=== PATIENT | female | born 1960 | race Caucasian/White ===

== ENCOUNTER 2018-12-04 10:45 | Inpatient (IN) ==
[2018-12-04] MEDS ORDERED: cefOXitin 2,000 MG in Water for inj. (sterile) 20 ML 20 ML IVP ONE (11:07)
[2018-12-04] MEDS ORDERED: Ringers Solution, Lactated 1,000 ML IVC SCH (11:15)
[2018-12-04] MEDS ORDERED: Famotidine 20 MG/2 ML VIAL IVP ONE (11:39)
[2018-12-04] MEDS ORDERED: Acetaminophen IV 1,000 MG/100 ML INFUS..BTL IVPB ONE (11:40)
[2018-12-04] MEDS ORDERED: Pregabalin 75 MG CAPSULE PO ONE (11:40)
--- NOTE | 2018-12-04 11:47 | Anesthesia Evaluation PreOp ---
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 History: CVA (08/21/2017 - R-MCA L-hand sensory impairment, Mild LUE weakness when excessively fatigued) Other Medical History: Other (Rectal Ca & Transverse Colon Ca) Anesthesia History: No Prior Anesthetic Complications, Past Anesthesia (C- section x 2, FAYE, Colonscopy) Alcohol Use: rarely Drug use: none Medications and Allergies Aspirin [Lo-Dose Aspirin EC] 81 mg PO DAILY 01/03/18 [History] Atorvastatin [Lipitor] 80 mg PO HS 01/03/18 [History] Famotidine [Heartburn Prevention] 20 mg PO BID 01/03/18 [History] Losartan [Cozaar] 25 mg PO DAILY 01/03/18 [History] Cetirizine HCl [Zyrtec] 10 mg PO DAILY 11/09/18 [History] Allergy/AdvReac Type Severity Reaction Status Date / Time No Known Allergies Allergy Verified 11/28/18 14:41 - Meds/Allergy Pre-op Review Medications Reviewed: Yes Allergies Reviewed: Yes Anesthesia Results - Labs Laboratory Tests 11/09/18 11/09/18 15:15 15:15 WBC 6.0 Hgb 12.7 Hct 39.2 Plt Count 287 Sodium 139 Potassium 3.8 Chloride 105 Carbon Dioxide 27 BUN 15 Creatinine 0.86 Est GFR (Non-Af Amer) > 60 Glucose 113 H Carcinoembryonic Ag 47.6 H - Imaging EKG: image reviewed (77bpm - SINUS RHYTHM NONSPECIFIC T-WAVE ABNORMALITY Electronically Signed On 11-28-2018 21:09:21 EST by Armando Reid) Additional studies: ECHO [[facility]] 08/22/2017 LVEF 55-60% Diastolic dysfunction Anesthesia Exam O2 Sat Height 1.57 m Height 1.57 m Weight 73.482 kg Weight 73.482 kg O2 Sat by Pulse Oximetry 93 Vital Signs Temp Pulse Resp BP Pulse Ox 99.1 F 94 18 129/87 93 12/04/18 11:12 12/04/18 11:12 12/04/18 11:12 12/04/18 11:12 12/04/18 11:12 Height: 5'2" Weight: 162# BMI = 30 NPO (# of Hours): MNOc - HEENT Pupil (Motor): Pupils equal, EOMI Mallampati: II Teeth: Missing Denture Type: Upper: Partial, Lower: Partial Oral Opening: Greater than 3 - CHIEF CREW SCHEDULER LOC: Oriented, Confused CHIEF CREW SCHEDULER Motor: Normal RUE, Normal LUE, Normal RLE, Normal LLE, Normal Face CHIEF CREW SCHEDULER Sensory: Normal: RUE, LUE, RLE, LLE, Face - Cardiac Rhythm: Regular Murmur: None - Pulmonary Breath Sounds: bilateral Clear Respiratory Effort: Symmetrical Anesthesia Assess/Plan ASA Score: 3 Level of consciousness: Cooperative, Oriented, Tranquil Anesthetic Plan: General, Epidural Monitoring Plan: Standard Monitors Recovery Plan: PACU Anes Supervising Prov Stmt: Pt seen/evaluated, R&B Discussed, questions answered and consent obtained. Get Hernandez MD
[2018-12-04] MEDS ORDERED: *HR* Succinylcholine 200 MG/10 ML VIAL IVP ONE (12:15)
[2018-12-04] MEDS ORDERED: *HR* Rocuronium Bromide 50 MG/5 ML VIAL ONE ×2 (12:15→14:50)
[2018-12-04] MEDS ORDERED: Lidocaine -MPF 4% 5 ML AMPUL ONE (12:15)
[2018-12-04] MEDS ORDERED: Lidocaine -MPF 2% 2 ML VIAL ONE (12:15)
[2018-12-04] MEDS ORDERED: *HR* Midazolam HCl 2 MG/2 ML VIAL ONE (12:16)
[2018-12-04] MEDS ORDERED: *HR* Propofol 200 MG/20 ML VIAL IVP ONE (12:16)
[2018-12-04] MEDS ORDERED: *HR* FentaNYL (PF) 100 MCG/2 ML VIAL ONE ×2 (12:16→13:07)
[2018-12-04] MEDS ORDERED: 0.9 % Sodium Chloride 500 ML IVC PRN (12:31)
[2018-12-04] MEDS ORDERED: *HR* OxyCODONE/APAP 5/325 TABLET PO PRN (12:31)
[2018-12-04] MEDS ORDERED: *HR* HYDROmorphone (PF) 1 MG/ML SYRINGE IVP PRN (12:31)
[2018-12-04] MEDS ORDERED: Naloxone 0.4 MG/ML INJ IVP PRN ×2 (12:31→18:51)
[2018-12-04] MEDS ORDERED: *HR* Morphine 2 MG/ML SYRINGE IVP PRN (12:31)
[2018-12-04] MEDS ORDERED: Morphine Sulfate/PF 10mg/10mL 10 MG, Bupivacaine-MPF 0.25% 125 ML in 0.9 % Sodium Chlor... EP SCH (12:45)
--- NOTE | 2018-12-04 12:48 | History & Physical Report ---
Date of Encounter: 12/04/18 Time of Encounter: 12:48 24 Hour HP Update - Instructions Instructions: If the History and Physical is less than 30 days old and was completed prior to A.M. admission and or procedure and has NOT been updated on calendar day of procedure please complete this update prior to performing procedure. - Update Patient reports changes in Medical Condition: No Changes in examination, assessment, or condition: No Changes in Medication: No Surgery Remains Indicated: Yes Consent for Planned Operative Procedure(s) Verified: Yes - Pre-Operative Checklist Prophylactic Antibiotic Ordered: Yes Home Medications Include Beta Ines: No Is VTE Prophylaxis Indicated?: Yes
[2018-12-04] MEDS ORDERED: Lidocaine/EPI 1:200k 1% PF 10 ML VIAL ONE (13:02)
[2018-12-04] MEDS ORDERED: Lidocaine -MPF 1% 5 ML AMPUL ONE (13:08)
[2018-12-04] MEDS ORDERED: Bupivacaine-MPF 0.25% 10 ML VIAL ONE (13:08)
[2018-12-04] MEDS ORDERED: Morphine Sulfate/PF 5mg/10mL Vial ONE (13:09)
[2018-12-04] MEDS ORDERED: Water for inj. (sterile) 10 ML IV ONE (13:17)
--- NOTE | 2018-12-04 14:56 | Anesthesia Procedures ---
Date of Encounter: 12/04/18 Time of Encounter: 13:15 Procedures: Anesthesia - Epidural/Spinal Patient ID/Chart reviewed: Yes Patient examined: Yes Consent Obtained: Yes Supplemental Oxygen: Nasal Cannula Supplemental Oxygen Rate (L/min): 2 Sedation: Versed (mg): 2 Site Prep: Aseptic Technique, Sterile prep and drape, Povidone-Iodine 1% Patient position: upright Local Anesthetic: Lidocaine 1% Amount of Local Anesthetic used: 3 Touhy Needle Gauge: 18 Touhy Needle Depth (cm): 4 Catheter Depth at Skin (cm): 12 Test Dose (1.5% Lido + Epi): Volume given (mls): 5 Test Dose Result: Negative Loading Dose: 0.25% Marcaine (mls): 8 Loading Dose: Fentanyl (mcg): 100 Loading Dose Administered: Thru Catheter Infusion Med: Other (0.125% Bupiv + Morphine) Catheter Secured in Place: Tegaderm Interspace Used: L2-L3 Loss of Resistance (KAY): Yes Blood: No CSF: No Paresthesia: No Vitals + FHT's: Vital Signs/O2 Sat/Glucose, Most Current Temp Pulse Resp BP Pulse Ox 12/04/18 13:34 100 16 121/90 96 12/04/18 13:12 84 18 129/89 99 Anes Supervising Prov Stmt: Sterile P&D. 3cc x 1% Lido local to L2-3. 18G touhy midline approach. + KAY, - CSF, - heme. Catheter easily 20 12cm at skin, 8 cm at space. Negative test dose of 3ml x 1.5% Lido + 1:200K epi. VSS. Catheter secured with sterile tegederm x 3. Bolus dose via catheter.[ 3 of 10 cc total dose given via cathter prior to induction.] NO immediate complications. Pt tolerated procedure well and without complaint. - MD Mary
[2018-12-04] MEDS ORDERED: Dexamethasone 4 MG/ML VIAL ONE (15:59)
[2018-12-04] MEDS ORDERED: Ondansetron 4 MG/2 ML VIAL ONE (15:59)
[2018-12-04] MEDS ORDERED: Neostigmine Methylsulfate 3 MG/3 ML SYRINGE ONE (16:00)
--- NOTE | 2018-12-04 17:33 | Operative Note ---
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 Sign in was performed and everyone was in agreement. Anesthesia was induced and the patient was endotracheally intubated by anesthesia without incident. An NG tube was placed. Leos catheter was placed by the circulating nurse. Patient was placed in yellowfin stirrups. The perineum and abdomen were prepped and draped in the usual sterile fashion. Timeout was performed again everyone was in agreement. Midline incision through the skin into the subcutaneous tissue was made with a 15 blade. We dissected through the subcutaneous tissue the anterior abdominal wall fascia with the Bovie. The abdomen was entered with the Bovie. Dilip's are placed on either side of the fascia for retraction and the fascial incision elongated. Bookwalter was placed for retraction and exposure. Right colon was taken down off the right lateral abdominal wall at the white line of Toldt with the Bovie and gentle blunt dissection and a proximal to distal direction. We opened the mesentery beneath the recovery room with the Bovie. The hepatic flexure was taken down with the Bovie and gentle blunt dissection. The distal terminal ileum, an area beneath the small bowel was opened at the mesentery with the Bovie and the distal terminal ileum was transected with a linear TAVARES 75 stapler blue load. The greater omentum was transected at the gastrocolic ligament with the impact LigaSure. There was bleeding at the right colon vein which was controlled with 3-0 silk [id number] suture ligation. An opening in the mesentery of the distal right colon just distal to the right colic vessels was made with the Bovie. The mesentery of the right colon was taken down with the impact LigaSure. The splenic flexure was taken down with gentle blunt dissection and the Bovie. The mesentery of the transverse colon was taken down and a proximal to distal direction coming across the middle colic vessels with the impact LigaSure. The descending colon and sigmoid were taken off the left lateral abdominal wall at the white line of Toldt with the Bovie and gentle blunt dissection. The left ureter was located and kept out of harm's way. The mesentery of the descending and sigmoid colon was taken down and a proximal to distal direction with the impact LigaSure coming across the BAILEY. The distal sigmoid and proximal rectum were adherent to the left abdominal wall and anterior abdominal wall with adhesions. These were taken down with gentle blunt dissection and the Bovie. The distal sigmoid mass was palpable as well as the tattoo was evident. The left and right distal sigmoid and proximal rectum mesentery was scored with the Bovie. An opening in the proximal rectum 5 cm distal to the tattoo and palpable mass was opened in the mesentery beneath the rectum with the Bovie and gentle blunt dissection, cleaning the mesenteric fat off the rectum. The rectum was transected with a contour stapler blue load. The remainder of the distal sigmoid mesentery was taken down with the impact LigaSure. The specimen was placed off to the back table for pathology. The specimen was opened up longitudinally and the descending colon as well as distal transverse colon lesions were marked with a 3-0 silk stitch 3 and the distal si gmoid mass was very evident. The abdomen was copiously irrigated with sterile saline. The small bowel staple line was grasped with 2 Babcocks and the staple line transected with heavy curved scissors. The small bowel was dilated up to 25 mm with the colon dilators. An EEA 25 mm circular stapler was chosen to create the ileorectal anastomosis. The anvil was placed into the open small bowel and an proximally. An opening in the antimesenteric small bowel was made with the Bovie and the anvil was pulled out through this. The rectum was dilated by the floral assistant and a side and ileo rectal anastomosis was made with the 25 mm EEA stapler. The staple line was reinforced with 3-0 silk [id number] stitches. The patient was placed and reverse Trendelenburg position and the pelvis filled with warm saline ensuring the anastomosis was under the saline. A noncrushing bowel clamp was placed on the small bowel proximal to the anastomosis. A 30 mL catheter was placed into the distal rectum and the balloon was insufflated with saline. 200 mL of air was instilled into the rectum and distal small bowel and there were no apparent anastomotic leak. The air was evacuated from the rectum. The abdomen was irrigated with sterile saline. Dilip's are placed on the bilateral fascia for retraction. The anterior abdominal wall was reapproximated with a #1 non-looped PDS running stitch 2 meeting in the middle. The subcutaneous tissue was copiously irrigated with sterile saline. The subcutaneous tissue was reapproximated with 3-0 Vicryl interrupted stitches. The skin was closed with betzy. 4 x 4 gauze and Medipore tape were applied as a dressing. The NG tube and Leos catheter remained with the patient after surgery. The patient was awoken by anesthesia and extubated in the OR without incident. All lap and instrument counts are correct at the end of the case. Take patient was taken to PACU in stable condition.
[2018-12-04] MEDS ORDERED: Acetaminophen IV 1,000 MG/100 ML INFUS..BTL IVPB SCH (18:00)
[2018-12-04] MEDS ORDERED: *HR* Promethazine 25 MG/ML VIAL IVP PRN (18:51)
[2018-12-04] MEDS ORDERED: *HR* HYDROmorphone 20 MG/20 ML PCA IVC PRN (18:51)
[2018-12-04] MEDS ORDERED: *HR* Metoprolol 5 MG/5 ML VIAL IVP PRN (18:51)
[2018-12-04] MEDS ORDERED: Ondansetron 4 MG/2 ML VIAL IVP PRN (18:51)
[2018-12-04] MEDS: Acetaminophen IV 1,000 MG/100 ML INFUS..BTL IVPB SCH (19:48)
[2018-12-04] MEDS: *HR* Heparin 5,000 UNIT/ML VIAL SQ SCH (19:53)
[2018-12-04] MEDS: 0.9 % Sodium Chloride 1,000 ML IVC SCH (19:53)
[2018-12-04] MEDS: Epidural Premix (fent/bupiv) 110 ML EP SCH (23:34)
[2018-12-04] MEDS ORDERED: Chloraseptic Spray 177 ML BOTTLE MM PRN (23:43)
[2018-12-05] MEDS: Acetaminophen IV 1,000 MG/100 ML INFUS..BTL IVPB SCH ×3 (00:17→11:42)
[2018-12-05] MEDS: Piperacillin/Tazobactam 3.375 GM in 0.9 % Sodium Chloride Mini Bag 100 ML IVPB SCH ×3 (00:17→15:49)
[2018-12-05] MEDS ORDERED: 0.9 % Sodium Chloride 1,000 ML IVC ONE (03:55)
[2018-12-05] MEDS: *HR* Heparin 5,000 UNIT/ML VIAL SQ SCH (05:18)
[2018-12-05] MEDS: 0.9 % Sodium Chloride 1,000 ML IVC SCH ×3 (05:19→22:40)
[2018-12-05] MEDS: Pantoprazole 40 MG VIAL IVP SCH (07:40)
[2018-12-05 07:55] LABS: Eosinophils % 0.1 %; Hematocrit 31.1 % (35.3-44.9); Hemoglobin 9.5 g/dL (11.5-15.4); Immature Granulocytes % 0.4 % (0-4); Lymphocytes # 0.4 K/mcL (0.6-4.6); Lymphocytes % 3.8 %; Mean Corpuscular HGB Conc 30.5 g/dL (31.6-35.5); Mean Corpuscular Hemoglobin 28.9 pg (28.0-33.3); Mean Corpuscular Volume 94.5 fL (83.0-100.0); Mean Platelet Volume 10.8 fL (9.4-12.4); Monocytes # 0.7 K/mcL (0.0-1.3); Monocytes % 6.8 %; Neutrophils # 9.5 K/mcL (1.6-8.9); Platelet Count 204 K/mcL (140-400); Red Blood Count 3.29 M/mcL (3.82-4.97); Red Cell Distribution Width 13.6 % (11.5-14.5); Segmented Neutrophils % 88.9 %
[2018-12-05 08:15] LABS: BUN/Creatinine Ratio 18 (6-26); Blood Urea Nitrogen 14 mg/dL (6-20); Calcium 7.5 mg/dL (8.6-10.3); Carbon Dioxide 26 mEq/L (23-29); Chloride 111 mEq/L (98-107); Glucose 137 mg/dL (70-105); Magnesium 1.6 mg/dL (1.6-2.6); Osmolality,Calculated 289 (280-300); Phosphorous 3.8 mg/dL (2.7-4.5); Potassium 4.4 mEq/L (3.5-5.1); Sodium 138 mEq/L (136-145); eGFR For Non-African Americans > 60 (> 60)
--- NOTE | 2018-12-05 08:17 | General Surgery Progress Note ---
<MunirNeelima Bharati - Last Filed: 12/05/18 08:23> Date of Encounter: 12/05/18 Time of Encounter: 08:12 - Assessment and Plan (1) Colon cancer Current Visit: Yes Status: Suspected Date of procedure: 12/04/18 Pre-op diagnosis: see op report Post-op diagnosis: same Procedure: Subtotal colectomy, takedown splenic flexure, omentectomy, side to end ileorectal anastomosis Complications: none immediate Anesthesia: GETA Surgeon: Tri Trammell POD #1 as above. Pathology remains pending. Pt reports she has no pain today. Her abdominal exam is grossly unremarkable. Continue supportive care and discomfort management epidural, scheduled Ofirmev, INVESTIGATION DIVISION LIEUTENANT continue G.I. and DVT prophylaxis continue incentive spirometry continue Craig catheter while epidural remains EP CDs may have limited ice chips add biotene mouth rinse Check cEA repeat am labs Qualifiers: Colon location: overlapping sites Qualified Code(s): C18.8 - Malignant neoplasm of overlapping sites of colon (2) HTN, goal below 130/80 Current Visit: Yes Status: Acute prn antihypertensives resume home meds when appropriate (3) Decreased hemoglobin Current Visit: Yes Status: Acute Likely dilutional as patient received 4L IVF 12/04 d/t suspected dehydration. Will continue to monitor Subjective Patient reports: no new complaints, pain is less, voiding w/o difficulty (per craig), no flatus, no bowel movement, afebrile Narrative: denies pain, nausea, or flatus Objective Vital Signs - Last 8 Hours Temp Pulse Resp BP Pulse Ox 12/05/18 06:36 98.6 F 92 14 96/59 96 12/05/18 06:04 108/66 12/05/18 05:16 93 99/65 96 12/05/18 04:07 98.2 F 108 15 86/57 92 12/05/18 02:01 92/61 12/05/18 00:56 95 91/59 97 12/05/18 00:39 98.2 F 101 15 90/60 95 Intake and Output 12/04/18 12/05/18 12/05/18 23:59 07:59 15:59 Intake Total 1100 / 1100 2328 / 2328 Output Total 250 / 250 400 / 400 Balance 850 / 850 1928 Intake: IV Fluids 1100 / 1100 2329 / 2329 0.9 % Sodium Chloride 1,000 ML 2229 / 2229 @ 125 mls/hr IVC .Q8H VINAY Rx#: [id number] Ofirmev 1,000 mg/100 ml 1,000 100 / 100 mg In 100 ml @ 400 mls/hr IVPB Q6HR VINAY Rx#:[id number] Zosyn 3.375 GM In 0.9 % Sodium 100 / 100 Chloride (Mini-Bag +) 100 ML @ 25 mls/hr IVPB Q8HR VINAY Rx#: [id number] Oral 0 / 0 0 / 0 Output: Estimated Blood Loss 250 / 250 Catheter 400 / 400 Gastric Drainage 0 / 0 Other: Weight 80.6 kg Blood Glucose* 120 Patient Weight 12/05/18 23:59 Weight 80.6 kg - General physical appearance no distress, no pain - Eyes normal ocular movement - ENT normal nares (NG secured), atraumatic, normocephalic - Neck Neck exam: trachea midline - Respiratory normal expansion, normal respiratory effort, clear to auscultation - Cardiovascular Cardiovascular exam: Present: RRR - Abdomen Abdomen: Present: bowel sounds present, soft, tender (expected postoperative) Hernia: none - Incision Incision: Present: clean and dry, intact - Integumentary no rash - Neurologic normal coordination, normal sensation - Musculoskeletal normal posture - Psychiatric oriented to time, oriented to person, oriented to place, speech is normal, memory intact - Labs 12/05/18 07:36 12/05/18 07:36 Consult Discharge Plan - Plan Referrals: Sangeetha Morales, ICE SKATING TEACHER [Primary Care Provider] - <Tri Trammell - Last Filed: 12/05/18 14:11> Date of Encounter: 12/05/18 - Assessment and Plan (1) DVT prophylaxis Current Visit: Yes Status: Acute heparin sq epcds (2) GERD (gastroesophageal reflux disease) Current Visit: Yes Status: Chronic continue iv protonix Qualifiers: Esophagitis presence: esophagitis presence not specified Qualified Code(s): K21.9 - Gastro-esophageal reflux disease without esophagitis (3) Colon cancer Current Visit: Yes Status: Suspected pathology pending pod 1 STC ileorectal anastomosis pain well controlled with epidural and INVESTIGATION DIVISION LIEUTENANT OK OOB to chair.ambulate gi/dvt prophylaxis npo ok ice chips await return of bowel function cea checked and is about 50% level of preoperative CEA continue craig - accurate I/O's aggressive pulmonary toilet Qualifiers: Colon location: overlapping sites Qualified Code(s): C18.8 - Malignant neoplasm of overlapping sites of colon (4) HTN, goal below 130/80 Current Visit: Yes Status: Chronic hypotensive overnight, response to surgery, bolused 1 liter, monitor continue hold home meds (5) Decreased hemoglobin Current Visit: Yes Status: Acute agree with CONTRACT ADMINISTRATOR - blood loss from OR and dilutional, patient received 5 L NS from surgery and overnight check Hb 2 pm Subjective Patient reports: no new complaints (pain well controlled, no nausea), pain is less, no flatus, no bowel movement, afebrile Objective Vital Signs - Last 8 Hours Temp Pulse Resp BP Pulse Ox 12/05/18 10:32 98.2 F 87 14 92/59 96 12/05/18 06:36 98.6 F 92 14 96/59 96 Intake and Output 12/04/18 12/05/18 12/05/18 23:59 07:59 15:59 Intake Total 1100 / 1100 2329 / 2329 871 / 871 Output Total 250 / 250 400 / 400 450 / 450 Balance 850 / 850 1929 / 1929 421 / 421 Intake: IV Fluids 1100 / 1100 2329 / 2329 871 / 871 0.9 % Sodium Chloride 1,000 ML 2229 / 2229 771 / 771 @ 125 mls/hr IVC .Q8H VINAY Rx#: [id number] Ofirmev 1,000 mg/100 ml 1,000 100 / 100 mg In 100 ml @ 400 mls/hr IVPB Q6HR VINAY Rx#:[id number] Zosyn 3.375 GM In 0.9 % Sodium 100 / 100 100 / 100 Chloride (Mini-Bag +) 100 ML @ 25 mls/hr IVPB Q8HR VINAY Rx#: [id number] Oral 0 / 0 0 / 0 0 / 0 Output: Estimated Blood Loss 250 / 250 Catheter 400 / 400 200 / 200 Gastric Drainage 0 / 0 250 / 250 Other: Meal NPO Percent of Meal Consumed 0% Weight 80.6 kg Blood Glucose* 120 121 Patient Weight 12/05/18 23:59 Weight 80.6 kg - General physical appearance well developed, well nourished, no distress - Eyes normal ocular movement - ENT normal mucosa, atraumatic, normocephalic - Neck Neck exam: trachea midline - Respiratory normal expansion, clear to auscultation - Cardiovascular Cardiovascular exam: Present: RRR - Abdomen Abdomen: Present: bowel sounds present, soft, tender. Absent: distended - Incision Incision: Present: clean and dry, intact - Genitourinary normal external genitalia (craig in place) - Integumentary no rash - Neurologic normal sensation - Musculoskeletal normal posture - Psychiatric oriented to time, oriented to person, oriented to place, speech is normal, memory intact - Labs 12/05/18 07:36 12/05/18 07:36 Diabetes panel 12/05/18 Range/Units 07:36 Sodium 138 (136-145) mEq/L Potassium 4.4 (3.5-5.1) mEq/L Chloride 111 H (98-107) mEq/L Carbon Dioxide 26 (23-29) mEq/L BUN 14 (6-20) mg/dL Creatinine 0.76 (0.60-1.20) mg/dL Glucose 137 H (70-105) mg/dL Calcium 7.5 L (8.6-10.3) mg/dL Calcium panel 12/05/18 Range/Units 07:36 Calcium 7.5 L (8.6-10.3) mg/dL Phosphorus 3.8 (2.7-4.5) mg/dL Pituitary panel 12/05/18 Range/Units 07:36 Sodium 138 (136-145) mEq/L Potassium 4.4 (3.5-5.1) mEq/L Chloride 111 H (98-107) mEq/L Carbon Dioxide 26 (23-29) mEq/L BUN 14 (6-20) mg/dL Creatinine 0.76 (0.60-1.20) mg/dL Glucose 137 H (70-105) mg/dL Calcium 7.5 L (8.6-10.3) mg/dL Adrenal panel 12/05/18 Range/Units 07:36 Sodium 138 (136-145) mEq/L Potassium 4.4 (3.5-5.1) mEq/L Chloride 111 H (98-107) mEq/L Carbon Dioxide 26 (23-29) mEq/L BUN 14 (6-20) mg/dL Creatinine 0.76 (0.60-1.20) mg/dL Glucose 137 H (70-105) mg/dL Calcium 7.5 L (8.6-10.3) mg/dL - Attending Attestation I have personally performed a face to face evaluation on this patient. I have reviewed and agree with the care plan. History and Exam by me shows:
[2018-12-05 09:11] LABS: Carcinoembryonic Antigen 25.4 ng/mL (Less than 5.0)
[2018-12-05] MEDS: Saliva Stimulant 100ml BOTTLE PO PRN ×2 (09:12→11:45)
[2018-12-05 14:39] LABS: Hematocrit 28.3 % (35.3-44.9); Hemoglobin 8.7 g/dL (11.5-15.4)
[2018-12-05] MEDS ORDERED: *HR* HYDROmorphone 20 MG/20 ML PCA IVC PRN (16:04)
[2018-12-05] MEDS ORDERED: Acetaminophen IV 1,000 MG/100 ML INFUS..BTL IVPB PRN (18:00)
--- NOTE | 2018-12-05 18:09 | Anesthesia Procedures ---
Date of Encounter: 12/05/18 Time of Encounter: 18:09 Procedures: Anesthesia - Epidural Rounding Post Op Day #: 1 Procedure: s/p Partial Colectomy Pain Control: Good Breakthrough Pain Meds: No Vital Signs: Vital Signs Temp Pulse Resp BP Pulse Ox 12/05/18 14:25 98.2 F 79 14 95/58 97 12/05/18 10:32 98.2 F 87 14 92/59 96 12/05/18 06:36 98.6 F 92 14 96/59 96 12/05/18 06:04 108/66 12/05/18 05:16 93 99/65 96 12/05/18 04:07 98.2 F 108 15 86/57 92 12/05/18 02:01 92/61 12/05/18 00:56 95 91/59 97 12/05/18 00:39 98.2 F 101 15 90/60 95 12/04/18 21:25 98.3 F 106 12 102/70 94 12/04/18 20:22 98.1 F 81 15 106/73 98 12/04/18 19:22 97.6 F 86 15 107/72 98 12/04/18 18:55 97.8 F 70 16 103/69 100 12/04/18 18:25 98.1 F 76 16 90/58 94 12/04/18 18:22 98.0 F 65 16 98/63 95 12/04/18 18:17 95 12/04/18 18:12 66 16 104/58 95 Intake and Output 12/05/18 12/05/18 12/05/18 07:59 15:59 23:59 Intake Total 2328 871 / 871 Output Total 400 / 400 450 / 450 Balance 1928 / 1928 421 / 421 Intake: IV Fluids 2328 871 / 871 0.9 % Sodium Chloride 1,000 ML 2228 771 / 771 @ 125 mls/hr IVC .Q8H VINAY Rx#: [id number] Zosyn 3.375 GM In 0.9 % Sodium 100 / 100 100 / 100 Chloride (Mini-Bag +) 100 ML @ 25 mls/hr IVPB Q8HR VINAY Rx#: [id number] Oral 0 / 0 0 / 0 Output: Catheter 400 / 400 200 / 200 Gastric Drainage 0 / 0 250 / 250 Other: Meal NPO NPO DINNER Percent of Meal Consumed 0% Weight 80.6 kg Blood Glucose* 120 121 123 Patient Weight 12/05/18 23:59 Weight 80.6 kg Mental Status: awake, alert, responsive Catheter Site Dressing Intact: Yes Erythema: No Pruritus: not present Signs of Infection At Catheter Site: No Plan: Continue current rate Anes Supervising Prov Stmt: Pt seen/evaluated, sitting up at bedside appearing bright and cheerful without complaint. Plan to continue current rate. Get Hernandez MD
[2018-12-06 05:03] LABS: Basophils % 0.1 %; Hematocrit 27.2 % (35.3-44.9); Hemoglobin 8.2 g/dL (11.5-15.4); Immature Granulocytes % 0.3 % (0-4); Lymphocytes # 0.7 K/mcL (0.6-4.6); Lymphocytes % 9.4 %; Mean Corpuscular HGB Conc 30.1 g/dL (31.6-35.5); Mean Corpuscular Hemoglobin 28.7 pg (28.0-33.3); Mean Corpuscular Volume 95.1 fL (83.0-100.0); Mean Platelet Volume 10.9 fL (9.4-12.4); Monocytes # 0.7 K/mcL (0.0-1.3); Monocytes % 9.8 %; Neutrophils # 5.8 K/mcL (1.6-8.9); Platelet Count 166 K/mcL (140-400); Red Blood Count 2.86 M/mcL (3.82-4.97); Red Cell Distribution Width 13.8 % (11.5-14.5); Segmented Neutrophils % 80.4 %
[2018-12-06 05:15] LABS: BUN/Creatinine Ratio 22 (6-26); Blood Urea Nitrogen 14 mg/dL (6-20); Calcium 8.1 mg/dL (8.6-10.3); Carbon Dioxide 27 mEq/L (23-29); Chloride 110 mEq/L (98-107); Glucose 104 mg/dL (70-105); Magnesium 1.8 mg/dL (1.6-2.6); Osmolality,Calculated 295 (280-300); Phosphorous 1.8 mg/dL (2.7-4.5); Potassium 3.8 mEq/L (3.5-5.1); Sodium 142 mEq/L (136-145); eGFR For Non-African Americans > 60 (> 60)
[2018-12-06] MEDS ORDERED: 0.9 % Sodium Chloride 1,000 ML IVC SCH (08:15)
[2018-12-06] MEDS: D5% in 0.45% NACL 1,000 ML IVC SCH (09:57)
[2018-12-06] MEDS: Pantoprazole 40 MG VIAL IVP SCH (09:57)
--- NOTE | 2018-12-06 11:05 | Anesthesia Progress Note ---
Date of Encounter: 12/06/18 Time of Encounter: 11:02 Anesthesia Note - Note Note: 12/06/18 11:02 At bedside to assess patient's pain and level of consciousness. Although patient is awake and converses normally and is alert and oriented X3, the states that she is more sedate than the previous evening. The patient denies pain. Dr Trammell notified and she chose to D/c the hydromorphone infusion and desires to continue the epidural infusion. Epidural bag changed and previous rate resumed.
[2018-12-06] MEDS: Epidural Premix (fent/bupiv) 110 ML EP SCH (11:12)
[2018-12-07] MEDS: Epidural Premix (fent/bupiv) 110 ML EP SCH ×2 (05:00→23:41)
[2018-12-07] MEDS: D5% in 0.45% NACL 1,000 ML IVC SCH (05:11)
[2018-12-07 06:13] LABS: Basophils % 0.2 %; Eosinophils # 0.1 K/mcL (0.0-0.6); Hematocrit 23.6 % (35.3-44.9); Hemoglobin 7.3 g/dL (11.5-15.4); Immature Granulocytes % 0.4 % (0-4); Lymphocytes # 0.7 K/mcL (0.6-4.6); Lymphocytes % 12.1 %; Mean Corpuscular HGB Conc 30.9 g/dL (31.6-35.5); Mean Corpuscular Hemoglobin 28.6 pg (28.0-33.3); Mean Corpuscular Volume 92.5 fL (83.0-100.0); Mean Platelet Volume 10.7 fL (9.4-12.4); Monocytes # 0.6 K/mcL (0.0-1.3); Monocytes % 9.9 %; Neutrophils # 4.2 K/mcL (1.6-8.9); Platelet Count 156 K/mcL (140-400); Red Blood Count 2.55 M/mcL (3.82-4.97); Red Cell Distribution Width 13.3 % (11.5-14.5); Segmented Neutrophils % 75.4 %
--- NOTE | 2018-12-07 06:17 | General Surgery Progress Note ---
Date of Encounter: 12/07/18 Time of Encounter: 17:00 - Assessment and Plan (1) DVT prophylaxis Current Visit: Yes Status: Acute epcds (2) GERD (gastroesophageal reflux disease) Current Visit: Yes Status: Chronic continue iv protonix Qualifiers: Esophagitis presence: esophagitis presence not specified Qualified Code(s): K21.9 - Gastro-esophageal reflux disease without esophagitis (3) Colon cancer Current Visit: Yes Status: Suspected pathology pending pod 2 STC ileorectal anastomosis pain well controlled with epidural SECURITIES SUPERVISOR stopped OK OOB to chair.ambulate gi/dvt prophylaxis npo ok ice chips await return of bowel function continue craig - accurate I/O's aggressive pulmonary toilet Qualifiers: Colon location: overlapping sites Qualified Code(s): C18.8 - Malignant neoplasm of overlapping sites of colon (4) HTN, goal below 130/80 Current Visit: Yes Status: Chronic BP improved,normotensive monitor continue hold home meds (5) Decreased hemoglobin Current Visit: Yes Status: Acute blood loss from OR and dilutional, monitor Subjective Patient reports: still having pain, pain is less, no flatus, no bowel movement, afebrile, other (no nausea, sedate from narcotics (have been stopped)) Objective Vital Signs - Last 8 Hours Temp Pulse Resp BP Pulse Ox 12/07/18 04:13 98.1 F 77 17 134/79 98 12/06/18 23:27 98.1 F 73 16 139/79 99 Intake and Output 12/06/18 12/06/18 12/07/18 15:59 23:59 07:59 Intake Total 1163 / 1163 360 / 360 655 / 655 Output Total 1050 / 1050 550 / 550 Balance 113 / 113 -190 / -190 655 / 655 Intake: IV Fluids 1163 / 1163 360 / 360 655 / 655 0.9 % Sodium Chloride 1,000 ML 818 / 818 @ 125 mls/hr IVC .Q8H VINAY Rx#: [id number] D5% And 0.45% Nacl 1000 Ml Bag 345 / 345 655 / 655 1,000 ML @ 75 mls/hr IVC . [id number] VINAY Rx#:[id number] Ofirmev 1,000 mg/100 ml 1,000 100 / 100 mg In 100 ml @ 400 mls/hr IVPB Q6HR PRN Rx#:[id number] Sodium Phosphate 30 MMOL In 0.9 260 / 260 % Sodium Chloride 250 ML @ 42 mls/hr IVPB ONCE ONE Rx#: [id number] Oral 0 / 0 Output: Catheter 700 / 700 550 / 550 Gastric Drainage 350 / 350 Other: Meal NPO NPO Weight 78.4 kg Blood Glucose* 117 120 125 Patient Weight 12/07/18 23:59 Weight 78.4 kg - General physical appearance well developed, well nourished, no distress, moderate pain - Eyes PERRL, normal ocular movement - ENT normal mucosa, normocephalic - Neck Neck exam: trachea midline - Respiratory normal expansion, clear to auscultation - Cardiovascular Cardiovascular exam: Present: RRR - Abdomen Abdomen: Present: soft, tender (appropriate post op tenderness). Absent: bowel sounds present, guarding, rebound - Incision Incision: Present: clean and dry, intact - Integumentary no rash - Neurologic CN 2-12 grossly intact - Musculoskeletal normal posture - Psychiatric oriented to time, oriented to person, oriented to place, speech is normal, memory intact - Labs 12/07/18 05:43 12/06/18 04:30 Consult Discharge Plan - Plan Referrals: Sangeetha Morales CNP [Primary Care Provider] - Tri Trammell MD [Partnered Physician] - 12/20/18 9:05 am
[2018-12-07 06:33] LABS: BUN/Creatinine Ratio 22 (6-26); Blood Urea Nitrogen 10 mg/dL (6-20); Calcium 8.2 mg/dL (8.6-10.3); Carbon Dioxide 30 mEq/L (23-29); Chloride 107 mEq/L (98-107); Glucose 124 mg/dL (70-105); Osmolality,Calculated 294 (280-300); Phosphorous 1.7 mg/dL (2.7-4.5); Potassium 3.2 mEq/L (3.5-5.1); Sodium 142 mEq/L (136-145); eGFR For Non-African Americans > 60 (> 60)
[2018-12-07 08:20] LABS: Iron < 10 mcg/dL (50-170); Transferrin 203 mg/dL (203-362)
[2018-12-07] MEDS: Pantoprazole 40 MG VIAL IVP SCH ×2 (09:01→21:20)
[2018-12-07] MEDS ORDERED: Lidocaine -MPF 1% 5 ML AMPUL INFILT ONE (09:03)
--- NOTE | 2018-12-07 09:33 | General Surgery Progress Note ---
Addendum entered and electronically signed by Neelima Amaral CNP 12/07/18 09:50: Diagnosis of electrolyte imbalance should be added to the assessment and plans: potassium replacement today 60 enemy Q, phosphorus 30 mmol NaPhos. Continue to closely monitor Original Note: <Neelima Amaral - Last Filed: 12/07/18 09:25> Date of Encounter: 12/07/18 Time of Encounter: 09:25 - Assessment and Plan (1) Colon cancer Current Visit: Yes Status: Suspected Date of procedure: 12/04/18 Pre-op diagnosis: see op report Post-op diagnosis: same Procedure: Subtotal colectomy, takedown splenic flexure, omentectomy, side to end ileorectal anastomosis Complications: none immediate Anesthesia: GETA Surgeon: Tri Trammell POD #3 as above. Pathology remains pending. 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 DINKEY [employer]INE FIRER stopped. Pt reports no abdominal pain with epidural. She did request Tylenol for a headache and the RN gave tylenol suspension at approximately 0900, clamped NG tube. Her NG was advanced 4 centimeters per recommendation of KUB. The NG is currently secured at 63 cm. Tylenol suspension has been discontinued d/t NPO except ice chips orders and absent bowel sounds. Noted increased gastric drainage; however, the patient is taking in large amounts of ice chips which have not been recorded in I/O to date. Continue supportive care and discomfort management epidural, prn Ofirmev; anticipate able to d.c. epidural 12/08/2018 continue G.I. and DVT prophylaxis continue incentive spirometry continue Craig catheter while epidural remains EP CDs may have limited ice chips-PLEASE RECORD ICE CHIPS IN INTAKE FLOW SHEET biotene mouth rinse PICC for multiple meds, adding venofer, anticipate TPN if her BF does not return repeat am labs Qualifiers: Colon location: overlapping sites Qualified Code(s): C18.8 - Malignant neoplasm of overlapping sites of colon (2) HTN, goal below 130/80 Current Visit: Yes Status: Chronic prn antihypertensives resume home meds when appropriate (3) Decreased hemoglobin Current Visit: Yes Status: Acute Likely dilutional as patient received 4L IVF 12/04 d/t suspected dehydration, co ntinued IVF, and with concomitant anemia of chronic disease noted iron less than 10, unable to calculate percent saturation, transferrin 203 start Venofer 250 mg daily for 5 days continue to monitor, transfuse PRBC if hemoglobin less than 7 Will continue to monitor (4) Anemia Current Visit: Yes Status: Acute See plan for decreased hemoglobin Qualifiers: Anemia type: iron deficiency Iron deficiency anemia type: unspecified iron deficiency Qualified Code(s): D50.9 - Iron deficiency anemia, unspecified (5) DVT prophylaxis Current Visit: Yes Status: Acute EPCDS while in bed. hold heparin d/yt decreased hgb (6) GERD (gastroesophageal reflux disease) Current Visit: Yes Status: Chronic Protonix IV Qualifiers: Esophagitis presence: esophagitis presence not specified Qualified Code(s): K21.9 - Gastro-esophageal reflux disease without esophagitis Subjective Patient reports: no new complaints, feels better, pain is less, voiding w/o difficulty (per craig), no flatus, no bowel movement, afebrile Narrative: states no abdominal pain. she requested tylenol only for a sinus headache. she has been eating " a lot of ice chips." Objective Vital Signs - Last 8 Hours Temp Pulse Resp BP Pulse Ox 12/07/18 06:52 98.1 F 77 14 148/82 99 12/07/18 04:13 98.1 F 77 17 134/79 98 Intake and Output 12/06/18 12/07/18 12/07/18 23:59 07:59 15:59 Intake Total 360 / 360 655 / 655 260 / 260 Output Total 1100 / 1100 1500 / 1500 Balance -740 / -740 -845 / -845 260 / 260 Intake: IV Fluids 360 / 360 655 / 655 260 / 260 D5% And 0.45% Nacl 1000 Ml Bag 655 / 655 260 / 260 1,000 ML @ 75 mls/hr IVC . [id number] [facility] Rx#:[id number] Ofirmev 1,000 mg/100 ml 1,000 100 / 100 mg In 100 ml @ 400 mls/hr IVPB Q6HR PRN Rx#:[id number] Sodium Phosphate 30 MMOL In 0.9 260 / 260 % Sodium Chloride 250 ML @ 42 mls/hr IVPB ONCE ONE Rx#: [id number] Output: Catheter 550 / 550 0 / 0 Gastric Drainage 550 / 550 1500 / 1500 Other: Meal NPO NPO Weight 78.4 kg Blood Glucose* 120 125 Patient Weight 01/17/19 23:59 Weight 78.4 kg - Labs 12/07/18 05:43 12/07/18 05:43 Diabetes panel 12/07/18 Range/Units 05:43 Sodium 142 (136-145) mEq/L Potassium 3.2 L (3.5-5.1) mEq/L Chloride 107 (98-107) mEq/L Carbon Dioxide 30 H (23-29) mEq/L BUN 10 (6-20) mg/dL Creatinine 0.46 L (0.60-1.20) mg/dL Glucose 124 H (70-105) mg/dL Calcium 8.2 L (8.6-10.3) mg/dL Calcium panel 12/07/18 Range/Units 05:43 Calcium 8.2 L (8.6-10.3) mg/dL Phosphorus 1.7 L (2.7-4.5) mg/dL Pituitary panel 12/07/18 Range/Units 05:43 Sodium 142 (136-145) mEq/L Potassium 3.2 L (3.5-5.1) mEq/L Chloride 107 (98-107) mEq/L Carbon Dioxide 30 H (23-29) mEq/L BUN 10 (6-20) mg/dL Creatinine 0.46 L (0.60-1.20) mg/dL Glucose 124 H (70-105) mg/dL Calcium 8.2 L (8.6-10.3) mg/dL Adrenal panel 12/07/18 Range/Units 05:43 Sodium 142 (136-145) mEq/L Potassium 3.2 L (3.5-5.1) mEq/L Chloride 107 (98-107) mEq/L Carbon Dioxide 30 H (23-29) mEq/L BUN 10 (6-20) mg/dL Creatinine 0.46 L (0.60-1.20) mg/dL Glucose 124 H (70-105) mg/dL Calcium 8.2 L (8.6-10.3) mg/dL Consult Discharge Plan - Plan Referrals: Sangeetha Morales CNP [Primary Care Provider] - Tri Trammell MD [Partnered Physician] - 12/20/18 9:05 am <Tri Trammell - Last Filed: 12/07/18 14:22> Date of Encounter: 12/07/18 Time of Encounter: 14:16 - Assessment and Plan (1) DVT prophylaxis Current Visit: Yes Status: Acute (2) GERD (gastroesophageal reflux disease) Current Visit: Yes Status: Chronic patient with suspected gastritis, increase protonix to bid and start liquid carafate 1 gm po QID Qualifiers: Esophagitis presence: esophagitis presence not specified Qualified Code(s): K21.9 - Gastro-esophageal reflux disease without esophagitis (3) Colon cancer Current Visit: Yes Status: Suspected pathology pending epidural for pain control, is controlling her pain well may need picc/tpn tomorrow if no bowel function decreased IVF rate good uop plan DC craig in am, will need bedside commode superior incision slightly erythematous, one staple removed and wound probed, no drainage resulted, wound packed with 1/4" iodoform packing, covered with 4x4 gauze and secured with medipore tape, change daily OOB in chair, ambulate continue ngt to liws until return of bowel function ok ice chips and po carafate Qualifiers: Colon location: overlapping sites Qualified Code(s): C18.8 - Malignant neoplasm of overlapping sites of colon (4) HTN, goal below 130/80 Current Visit: Yes Status: Chronic (5) Decreased hemoglobin Current Visit: Yes Status: Acute blood loss in OR, dilutional patient may have gastritis, ngt looks blood tinged, monitor venofer started Subjective Patient reports: feels better, still having pain, pain is less, voiding w/o difficulty, no flatus, no bowel movement, afebrile Objective Vital Signs - Last 8 Hours Temp Pulse Resp BP Pulse Ox 12/07/18 10:16 98.0 F 73 14 134/84 97 12/07/18 06:52 98.1 F 77 14 148/82 99 Intake and Output 12/06/18 12/07/18 12/07/18 23:59 07:59 15:59 Intake Total 360 / 360 655 / 655 870.5 / 870.5 Output Total 1100 / 1100 1500 / 1500 250 / 250 Balance -740 / -740 -845 / -845 620.5 / 620.5 Intake: IV Fluids 360 / 360 655 / 655 670.5 / 670.5 D5% And 0.45% Nacl 1000 Ml Bag 655 / 655 408 / 408 1,000 ML @ 75 mls/hr IVC . [id number] [facility] Rx#:[id number] Ofirmev 1,000 mg/100 ml 1,000 100 / 100 mg In 100 ml @ 400 mls/hr IVPB Q6HR PRN Rx#:[id number] Venofer 250 MG In 0.9 % Sodium 262.5 / 262.5 Chloride 250 ML @ 130 mls/hr IVPB DAILY [facility] Rx#:[id number] Sodium Phosphate 30 MMOL In 0.9 260 / 260 % Sodium Chloride 250 ML @ 42 mls/hr IVPB ONCE ONE Rx#: [id number] Oral 200 / 200 Output: Catheter 550 / 550 0 / 0 250 / 250 Gastric Drainage 550 / 550 1500 / 1500 Other: Meal NPO NPO Weight 78.4 kg Blood Glucose* 120 125 132 Patient Weight 12/07/18 23:59 Weight 78.4 kg - General physical appearance well developed, well nourished, no distress - Eyes PERRL, normal ocular movement - ENT normal mucosa, normocephalic - Neck Neck exam: trachea midline - Respiratory normal expansion, normal respiratory effort - Cardiovascular Cardiovascular exam: Present: RRR - Abdomen Abdomen: Present: soft, tender (appropriate post op tenderness). Absent: bowel sounds present, guarding, rebound - Incision Incision: Present: clean and dry, intact - Integumentary no rash, no growths - Neurologic CN 2-12 grossly intact - Musculoskeletal normal posture - Psychiatric oriented to time, oriented to person, oriented to place, speech is normal, memory intact - Labs 12/07/18 05:43 12/07/18 05:43 Diabetes panel 12/07/18 Range/Units 05:43 Sodium 142 (136-145) mEq/L Potassium 3.2 L (3.5-5.1) mEq/L Chloride 107 (98-107) mEq/L Carbon Dioxide 30 H (23-29) mEq/L BUN 10 (6-20) mg/dL Creatinine 0.46 L (0.60-1.20) mg/dL Glucose 124 H (70-105) mg/dL Calcium 8.2 L (8.6-10.3) mg/dL Calcium panel 12/07/18 Range/Units 05:43 Calcium 8.2 L (8.6-10.3) mg/dL Phosphorus 1.7 L (2.7-4.5) mg/dL Pituitary panel 12/07/18 Range/Units 05:43 Sodium 142 (136-145) mEq/L Potassium 3.2 L (3.5-5.1) mEq/L Chloride 107 (98-107) mEq/L Carbon Dioxide 30 H (23-29) mEq/L BUN 10 (6-20) mg/dL Creatinine 0.46 L (0.60-1.20) mg/dL Glucose 124 H (70-105) mg/dL Calcium 8.2 L (8.6-10.3) mg/dL Adrenal panel 12/07/18 Range/Units 05:43 Sodium 142 (136-145) mEq/L Potassium 3.2 L (3.5-5.1) mEq/L Chloride 107 (98-107) mEq/L Carbon Dioxide 30 H (23-29) mEq/L BUN 10 (6-20) mg/dL Creatinine 0.46 L (0.60-1.20) mg/dL Glucose 124 H (70-105) mg/dL Calcium 8.2 L (8.6-10.3) mg/dL - Attending Attestation I have personally performed a face to face evaluation on this patient. I have reviewed and agree with the care plan. History and Exam by me shows:
[2018-12-07] MEDS ORDERED: Potassium Chloride 40 MEQ, Lidocaine 1% 2 ML in D5% in Water 500 ML IVPB ONE (09:37)
[2018-12-07] MEDS ORDERED: Potassium Chloride 20 MEQ, Lidocaine 1% 2 ML in D5% in Water 250 ML IVPB ONE (09:37)
[2018-12-07] MEDS ORDERED: Sodium Phosphate 30 MMOL in D5% in Water 100 ML IVPB ONE (09:48)
[2018-12-07] MEDS ORDERED: D5% in 0.45% NACL 1,000 ML IVC SCH (10:15)
[2018-12-07] MEDS: Iron Sucrose Complex 250 MG in 0.9 % Sodium Chloride 250 ML IVPB SCH (10:42)
[2018-12-07] MEDS ORDERED: Acetaminophen IV 1,000 MG/100 ML INFUS..BTL IVPB PRN (14:25)
--- NOTE | 2018-12-07 17:53 | Anesthesia Procedures ---
Date of Encounter: 12/07/18 Time of Encounter: 17:53 Procedures: Anesthesia - Epidural Rounding Post Op Day #: 3 Procedure: subtotal colectomy Pain Control: Good Vital Signs: Vital Signs/O2 Sat/Glucose, Most Current Temp Pulse Resp BP Pulse Ox 12/07/18 14:14 98.1 F 79 15 142/88 96 Mental Status: awake Catheter Site Dressing Intact: Yes Erythema: No Pruritus: not present Signs of Infection At Catheter Site: No Plan: Continue current rate
[2018-12-07] MEDS: Acetaminophen IV 1,000 MG/100 ML INFUS..BTL IVPB PRN (21:19)
[2018-12-08 03:04] LABS: Basophils % 0.7 %; Eosinophils # 0.2 K/mcL (0.0-0.6); Eosinophils % 3.3 %; Hematocrit 26.1 % (35.3-44.9); Hemoglobin 8.5 g/dL (11.5-15.4); Immature Granulocytes % 0.7 % (0-4); Lymphocytes % 15.8 %; Mean Corpuscular HGB Conc 32.6 g/dL (31.6-35.5); Mean Corpuscular Hemoglobin 29.2 pg (28.0-33.3); Mean Corpuscular Volume 89.7 fL (83.0-100.0); Mean Platelet Volume 10.3 fL (9.4-12.4); Monocytes # 0.6 K/mcL (0.0-1.3); Neutrophils # 4.3 K/mcL (1.6-8.9); Platelet Count 197 K/mcL (140-400); Red Blood Count 2.91 M/mcL (3.82-4.97); Red Cell Distribution Width 12.9 % (11.5-14.5); Segmented Neutrophils % 70.5 %
[2018-12-08 03:21] LABS: BUN/Creatinine Ratio 9 (6-26); Blood Urea Nitrogen 4 mg/dL (6-20); Calcium 8.4 mg/dL (8.6-10.3); Carbon Dioxide 28 mEq/L (23-29); Chloride 103 mEq/L (98-107); Glucose 126 mg/dL (70-105); Magnesium 1.9 mg/dL (1.6-2.6); Osmolality,Calculated 280 (280-300); Potassium 3.1 mEq/L (3.5-5.1); Sodium 136 mEq/L (136-145); eGFR For Non-African Americans > 60 (> 60)
[2018-12-08] MEDS: Acetaminophen IV 1,000 MG/100 ML INFUS..BTL IVPB PRN ×2 (07:03→21:55)
[2018-12-08] MEDS: Pantoprazole 40 MG VIAL IVP SCH ×2 (08:56→21:56)
[2018-12-08] MEDS: Iron Sucrose Complex 250 MG in 0.9 % Sodium Chloride 250 ML IVPB SCH (08:58)
[2018-12-08] MEDS ORDERED: Potassium Phosphate 44 MEQ in 0.9 % Sodium Chloride 250 ML IVPB ONE (09:57)
[2018-12-08] MEDS: D5% in 0.45% NACL w KCl 20 MEQ/1,000 ML MLS IVC SCH (11:15)
--- NOTE | 2018-12-08 13:14 | General Surgery Progress Note ---
<MunirNeelima Bharati - Last Filed: 12/08/18 13:12> Date of Encounter: 12/08/18 Time of Encounter: 13:12 - Assessment and Plan (1) Colon cancer Current Visit: Yes Status: Suspected Date of procedure: 12/04/18 Pre-op diagnosis: see op report Post-op diagnosis: same Procedure: Subtotal colectomy, takedown splenic flexure, omentectomy, side to end ileorectal anastomosis Complications: none immediate Anesthesia: GETA Surgeon: Tri Trammell POD #4 as above. Pathology remains pending. She continues to deny abdominal pain. She reports new finding of left upper anterior thigh numbness this morning. She denies feelings of n/v. her NG has been clamped for carafate for aprox 1 hour. Residuals checked (zero), and she has active bowel sounds, but has not passed flatus. We will clamp her NG and permit limited clears. If she has /v/pain, return to suction. Continue supportive care and discomfort management d/c epidural (anesthesia aware) continue G.I. and DVT prophylaxis (resume heparin BID) continue incentive spirometry EP CDs clamp NG. If nausea or vomiting, return to suction limited clears biotene mouth rinse EPIV in place repeat am labs Continue daily wound care: remove dressing and packing. Wash with antibacterial soap. Repack with 1/4 inch iodoform gauze for wicking purposes only. Cover with a dry dressing. Apply abdominal binder use ice as needed d/c craig cath Strict I&O Qualifiers: Colon location: overlapping sites Qualified Code(s): C18.8 - Malignant neoplasm of overlapping sites of colon (2) HTN, goal below 130/80 Current Visit: Yes Status: Chronic prn antihypertensives resume home meds when appropriate (3) Decreased hemoglobin Current Visit: Yes Status: Acute Likely dilutional as patient received 4L IVF 12/04 d/t suspected dehydration, continued IVF, and with concomitant anemia of chronic disease noted iron less than 10, unable to calculate percent saturation, transferrin 203; She was increased on Protonix to BID and carafate added 12/08/2018. Her hgb has increased to 8.5 continue Venofer 250 mg daily (day 2 of 5), patient states she is feeling much better continue to monitor, transfuse PRBC if hemoglobin less than 7 Will continue to monitor (4) Anemia Current Visit: Yes Status: Acute See plan for decreased hemoglobin Qualifiers: Anemia type: iron deficiency Iron deficiency anemia type: unspecified iron deficiency Qualified Code(s): D50.9 - Iron deficiency anemia, unspecified (5) DVT prophylaxis Current Visit: Yes Status: Acute EPCDS while in bed. Resume heparin (6) GERD (gastroesophageal reflux disease) Current Visit: Yes Status: Chronic Protonix IV BID carafate slurry QID Qualifiers: Esophagitis presence: esophagitis presence not specified Qualified Code(s): K21.9 - Gastro-esophageal reflux disease without esophagitis (7) Electrolyte imbalance Current Visit: Yes Status: Acute 40 MEQ K given for K 3.2 K today 3.1: 44 MEQ Kphos given and an additional dose of 20 MEQ given. recheck K at 1700 today Phos 2.0, replaced as above. Repeat am labs (8) Protein-calorie malnutrition, mild Current Visit: Yes Status: Acute Postoperative ileus appears to be resulting. Will hold off on TPN for now Subjective Patient reports: no new complaints, pain is less, voiding w/o difficulty, no flatus, no bowel movement, afebrile Narrative: Denies flatus but states "feels like I'm going to. I'm having lots of rumbling in there." She reports left upper front thigh numbness that is new today Objective Vital Signs - Last 8 Hours Temp Pulse Resp BP Pulse Ox 12/08/18 10:38 98.0 F 86 15 140/87 93 Intake and Output 12/07/18 12/08/18 12/08/18 23:59 07:59 15:59 Intake Total 722 / 722 420 / 420 262.5 / 262.5 Output Total 2100 / 2100 600 / 600 Balance -1378 / -1378 -180 / -180 262.5 / 262.5 Intake: IV Fluids 472 / 472 100 / 100 262.5 / 262.5 Ofirmev 1,000 mg/100 ml 1,000 100 / 100 100 / 100 mg In 100 ml @ 400 mls/hr IVPB Q6H PRN Rx#:[id number] Venofer 250 MG In 0.9 % Sodium 262.5 / 262.5 Chloride 250 ML @ 130 mls/hr IVPB DAILY [facility] Rx#:[id number] KCl 20 MEQ Xylocaine 2 ML In 262 / 262 Dextrose 5% 250 ML @ 131 mls/hr IVPB ONCE ONE Rx#:[id number] Sodium Phosphate 30 MMOL In 110 / 110 Dextrose 5% 100 ML @ 16 mls/hr IVPB ONCE ONE Rx#:[id number] Oral 250 / 250 320 / 320 0 / 0 Output: Catheter 2050 / 2050 600 / 600 Urethral (Craig) 300 / 300 Gastric Drainage 50 / 50 Other: Meal Breakfast NPO Percent of Meal Consumed 0% Weight 78.6 kg Blood Glucose* 116 106 Patient Weight 12/08/18 23:59 Weight 78.6 kg - General physical appearance no distress, no pain - Eyes normal ocular movement - ENT normal nares (NG secured), normal mucosa - Neck Neck exam: trachea midline - Respiratory normal expansion, normal respiratory effort, clear to auscultation - Cardiovascular Cardiovascular exam: Present: RRR - Abdomen Abdomen: Present: bowel sounds present, soft, non tender - Incision Incision: Present: clean and dry, intact (Overall. The superior portion is with packing. ) - Integumentary no rash - Neurologic normal coordination, normal sensation - Musculoskeletal normal posture - Psychiatric oriented to time, oriented to person, oriented to place, speech is normal, memory intact - Labs 12/08/18 02:50 12/08/18 02:50 Diabetes panel 12/08/18 12/08/18 Range/Units 02:50 02:50 Sodium 136 (136-145) mEq/L Potassium 3.1 L (3.5-5.1) mEq/L Chloride 103 (98-107) mEq/L Carbon Dioxide 28 (23-29) mEq/L BUN 4 L (6-20) mg/dL Creatinine 0.45 L (0.60-1.20) mg/dL Glucose 126 H (70-105) mg/dL Calcium 8.4 L (8.6-10.3) mg/dL Albumin 3.2 L (3.5-5.7) g/dL Calcium panel 12/08/18 12/08/18 Range/Units 02:50 02:50 Calcium 8.4 L (8.6-10.3) mg/dL Phosphorus 2.0 L (2.7-4.5) mg/dL Albumin 3.2 L (3.5-5.7) g/dL Pituitary panel 12/08/18 Range/Units 02:50 Sodium 136 (136-145) mEq/L Potassium 3.1 L (3.5-5.1) mEq/L Chloride 103 (98-107) mEq/L Carbon Dioxide 28 (23-29) mEq/L BUN 4 L (6-20) mg/dL Creatinine 0.45 L (0.60-1.20) mg/dL Glucose 126 H (70-105) mg/dL Calcium 8.4 L (8.6-10.3) mg/dL Adrenal panel 12/08/18 12/08/18 Range/Units 02:50 02:50 Sodium 136 (136-145) mEq/L Potassium 3.1 L (3.5-5.1) mEq/L Chloride 103 (98-107) mEq/L Carbon Dioxide 28 (23-29) mEq/L BUN 4 L (6-20) mg/dL Creatinine 0.45 L (0.60-1.20) mg/dL Glucose 126 H (70-105) mg/dL Calcium 8.4 L (8.6-10.3) mg/dL Albumin 3.2 L (3.5-5.7) g/dL Consult Discharge Plan - Plan Referrals: Sangeetha Morales CNP [Primary Care Provider] - Tri Trammell MD [Partnered Physician] - 12/20/18 9:05 am <Tri Trammell - Last Filed: 12/08/18 15:52> Date of Encounter: 12/08/18 - Assessment and Plan (1) DVT prophylaxis Current Visit: Yes Status: Acute (2) GERD (gastroesophageal reflux disease) Current Visit: Yes Status: Chronic Qualifiers: Esophagitis presence: esophagitis presence not specified Qualified Code(s): K21.9 - Gastro-esophageal reflux disease without esophagitis (3) Colon cancer Current Visit: Yes Status: Suspected pathology pending patient know with bowel sounds, no bowel function yet continue ngt dc craig dc epidural, start po pain medication abdominal binder ambulate patient doing well electrolytes replaced Qualifiers: Colon location: overlapping sites Qualified Code(s): C18.8 - Malignant neoplasm of overlapping sites of colon (4) HTN, goal below 130/80 Current Visit: Yes Status: Chronic start scheduled lopressor (5) Decreased hemoglobin Current Visit: Yes Status: Acute Subjective Patient reports: still having pain, pain is less, voiding w/o difficulty, no flatus, no bowel movement, afebrile Objective Vital Signs - Last 8 Hours Temp Pulse Resp BP Pulse Ox 12/08/18 14:37 97.8 F 84 16 157/90 95 12/08/18 10:38 98.0 F 86 15 140/87 93 Intake and Output 12/07/18 12/08/18 12/08/18 23:59 07:59 15:59 Intake Total 722 / 722 420 / 420 355.5 / 355.5 Output Total 2100 / 2100 600 / 600 400 / 400 Balance -1378 / -1378 -180 / -180 -44.5 / -44.5 Intake: IV Fluids 472 / 472 100 / 100 355.5 / 355.5 Ofirmev 1,000 mg/100 ml 1,000 100 / 100 100 / 100 mg In 100 ml @ 400 mls/hr IVPB Q6H PRN Rx#:[id number] Venofer 250 MG In 0.9 % Sodium 262.5 / 262.5 Chloride 250 ML @ 130 mls/hr IVPB DAILY [facility] Rx#:[id number] KCl 20 MEQ Xylocaine 2 ML In 262 / 262 Dextrose 5% 250 ML @ 131 mls/hr IVPB ONCE ONE Rx#:[id number] Potassium Phosphate 44 MEQ In 0 93 / 93 .9 % Sodium Chloride 250 ML @ 40 mls/hr IVPB ONCE ONE Rx#: [id number] Sodium Phosphate 30 MMOL In 110 / 110 Dextrose 5% 100 ML @ 16 mls/hr IVPB ONCE ONE Rx#:[id number] Oral 250 / 250 320 / 320 0 / 0 Output: Urine 400 / 400 Gastric Tube Lavage Amount 0 / 0 Left Nare 0 / 0 Catheter 0 / 2049 600 / 600 Urethral (Craig) 300 / 300 Gastric Drainage 50 / 50 Other: Meal LUNCH NPO Percent of Meal Consumed 0% Weight 78.6 kg Blood Glucose* 116 106 Patient Weight 12/08/18 23:59 Weight 78.6 kg - General physical appearance well developed, well nourished, no distress, no pain - Eyes PERRL, normal ocular movement - ENT normal mucosa, normocephalic - Neck Neck exam: trachea midline - Respiratory normal expansion, clear to auscultation - Cardiovascular Cardiovascular exam: Present: RRR - Abdomen Abdomen: Present: bowel sounds present, soft, tender (minimal and expected post operative tenderness) - Incision Incision: Present: clean and dry, intact - Integumentary no rash - Neurologic normal sensation - Musculoskeletal normal posture - Psychiatric oriented to time, oriented to person, oriented to place, speech is normal, memory intact - Labs 12/08/18 02:50 12/08/18 02:50 Diabetes panel 12/08/18 12/08/18 Range/Units 02:50 02:50 Sodium 136 (136-145) mEq/L Potassium 3.1 L (3.5-5.1) mEq/L Chloride 103 (98-107) mEq/L Carbon Dioxide 28 (23-29) mEq/L BUN 4 L (6-20) mg/dL Creatinine 0.45 L (0.60-1.20) mg/dL Glucose 126 H (70-105) mg/dL Calcium 8.4 L (8.6-10.3) mg/dL Albumin 3.2 L (3.5-5.7) g/dL Calcium panel 12/08/18 12/08/18 Range/Units 02:50 02:50 Calcium 8.4 L (8.6-10.3) mg/dL Phosphorus 2.0 L (2.7-4.5) mg/dL Albumin 3.2 L (3.5-5.7) g/dL Pituitary panel 12/08/18 Range/Units 02:50 Sodium 136 (136-145) mEq/L Potassium 3.1 L (3.5-5.1) mEq/L Chloride 103 (98-107) mEq/L Carbon Dioxide 28 (23-29) mEq/L BUN 4 L (6-20) mg/dL Creatinine 0.45 L (0.60-1.20) mg/dL Glucose 126 H (70-105) mg/dL Calcium 8.4 L (8.6-10.3) mg/dL Adrenal panel 12/08/18 12/08/18 Range/Units 02:50 02:50 Sodium 136 (136-145) mEq/L Potassium 3.1 L (3.5-5.1) mEq/L Chloride 103 (98-107) mEq/L Carbon Dioxide 28 (23-29) mEq/L BUN 4 L (6-20) mg/dL Creatinine 0.45 L (0.60-1.20) mg/dL Glucose 126 H (70-105) mg/dL Calcium 8.4 L (8.6-10.3) mg/dL Albumin 3.2 L (3.5-5.7) g/dL - Attending Attestation I have personally performed a face to face evaluation on this patient. I have reviewed and agree with the care plan. History and Exam by me shows:
[2018-12-08] MEDS ORDERED: Potassium Chloride 20 MEQ, Lidocaine 1% 2 ML in D5% in Water 250 ML IVPB ONE (13:28)
[2018-12-08] MEDS ORDERED: Potassium Chloride 40 MEQ, Lidocaine 1% 2 ML in D5% in Water 500 ML IVPB ONE (14:19)
[2018-12-08] MEDS: *HR* Heparin 5,000 UNIT/ML VIAL SQ SCH (18:04)
[2018-12-08] MEDS: *HR* Metoprolol 5 MG/5 ML VIAL IVP SCH (18:04)
--- NOTE | 2018-12-08 22:12 | Anesthesia Procedures ---
Date of Encounter: 12/08/18 Time of Encounter: 22:12 Procedures: Anesthesia - Epidural Rounding Post Op Day #: 4 Procedure: s/p Partial Colectomy Pain Control: Good Vital Signs: Vital Signs Temp Pulse Resp BP Pulse Ox 12/08/18 18:49 98.9 F 77 16 148/86 94 12/08/18 14:37 97.8 F 84 16 157/90 95 12/08/18 10:38 98.0 F 86 15 140/87 93 12/08/18 04:13 98.4 F 83 16 151/92 93 12/07/18 23:41 98.2 F 88 16 138/88 93 Intake and Output 12/08/18 12/08/18 12/08/18 07:59 15:59 23:59 Intake Total 420 / 420 1387.5 / 1387.5 0 / 0 Output Total 600 / 600 1150 / 1150 600 / 600 Balance -180 / -180 237.5 / 237.5 -600 / -600 Intake: IV Fluids 100 / 100 947.5 / 947.5 Ofirmev 1,000 mg/100 ml 1,000 100 / 100 mg In 100 ml @ 400 mls/hr IVPB Q6H PRN Rx#:[id number] Venofer 250 MG In 0.9 % Sodium 262.5 / 262.5 Chloride 250 ML @ 130 mls/hr IVPB DAILY [facility] Rx#:[id number] Potassium Phosphate 44 MEQ In 0 93 / 93 .9 % Sodium Chloride 250 ML @ 40 mls/hr IVPB ONCE ONE Rx#: [id number] Oral 320 / 320 440 / 440 0 / 0 Output: Urine 400 / 400 600 / 600 Gastric Tube Lavage Amount 0 / 0 Left Nare 0 / 0 Catheter 600 / 600 500 / 500 Urethral (Leos) 500 / 500 Gastric Drainage 250 / 250 Left Nare 250 / 250 Other: Meal LUNCH NPO Percent of Meal Consumed 0% Weight 78.6 kg Blood Glucose* 106 132 Patient Weight 12/08/18 23:59 Weight 78.6 kg Mental Status: awake Catheter Site Dressing Intact: No (TEgederm & tape pulling off noted at 1900, reinforced until epidural d/c'd ) Erythema: No Signs of Infection At Catheter Site: No Plan: Remove Epidural Catheter (Epidural d/c'd at 2205) Epidural Catheter removed; Tip Intact: Yes Anes Supervising Prov Stmt: Get Hernandez MD
[2018-12-09] MEDS: *HR* Metoprolol 5 MG/5 ML VIAL IVP SCH ×3 (00:24→11:47)
[2018-12-09 01:50] LABS: Basophils % 0.6 %; Eosinophils # 0.4 K/mcL (0.0-0.6); Hematocrit 26.3 % (35.3-44.9); Hemoglobin 8.7 g/dL (11.5-15.4); Lymphocytes # 1.2 K/mcL (0.6-4.6); Lymphocytes % 18.7 %; Mean Corpuscular HGB Conc 33.1 g/dL (31.6-35.5); Mean Corpuscular Hemoglobin 29.3 pg (28.0-33.3); Mean Corpuscular Volume 88.6 fL (83.0-100.0); Mean Platelet Volume 10.4 fL (9.4-12.4); Monocytes # 0.6 K/mcL (0.0-1.3); Monocytes % 9.2 %; Nucleated Red Blood Cells 0.3 /100 WBC (0); Platelet Count 215 K/mcL (140-400); Red Blood Count 2.97 M/mcL (3.82-4.97); Red Cell Distribution Width 13.2 % (11.5-14.5); Segmented Neutrophils % 64.5 %
[2018-12-09 02:08] LABS: Magnesium 1.7 mg/dL (1.6-2.6); Phosphorous 2.8 mg/dL (2.7-4.5)
[2018-12-09 02:09] LABS: BUN/Creatinine Ratio 9 (6-26); Blood Urea Nitrogen 4 mg/dL (6-20); Calcium 8.1 mg/dL (8.6-10.3); Carbon Dioxide 23 mEq/L (23-29); Chloride 105 mEq/L (98-107); Glucose 284 mg/dL (70-105); Osmolality,Calculated 285 (280-300); Potassium 3.8 mEq/L (3.5-5.1); Sodium 134 mEq/L (136-145); eGFR For Non-African Americans > 60 (> 60)
[2018-12-09] MEDS: *HR* Heparin 5,000 UNIT/ML VIAL SQ SCH ×2 (05:12→17:25)
[2018-12-09] MEDS: D5% in 0.45% NACL w KCl 20 MEQ/1,000 ML MLS IVC SCH (08:04)
[2018-12-09] MEDS: Pantoprazole 40 MG VIAL IVP SCH ×2 (08:08→21:49)
[2018-12-09] MEDS: Iron Sucrose Complex 250 MG in 0.9 % Sodium Chloride 250 ML IVPB SCH (08:58)
--- NOTE | 2018-12-09 13:13 | General Surgery Progress Note ---
Date of Encounter: 12/09/18 Time of Encounter: 13:10 - Assessment and Plan (1) DVT prophylaxis Current Visit: Yes Status: Acute epcds heparin sq (2) GERD (gastroesophageal reflux disease) Current Visit: Yes Status: Chronic protonix and carafate cont Qualifiers: Esophagitis presence: esophagitis presence not specified Qualified Code(s): K21.9 - Gastro-esophageal reflux disease without esophagitis (3) Colon cancer Current Visit: Yes Status: Suspected pathology pending starting clears po pain medication, patient states she really has no significant pain abdominal binder ambulate patient doing well Qualifiers: Colon location: overlapping sites Qualified Code(s): C18.8 - Malignant neoplasm of overlapping sites of colon (4) HTN, goal below 130/80 Current Visit: Yes Status: Chronic start home medication (5) Decreased hemoglobin Current Visit: Yes Status: Acute blood loss in OR, dilutional patient may have gastritis, ngt looks blood tinged, monitor venofer started Subjective Patient reports: no new complaints, feels better, flatus, bowel movement, afebrile Objective Vital Signs - Last 8 Hours Temp Pulse Resp BP Pulse Ox 12/09/18 10:01 98.9 F 84 15 138/90 93 12/09/18 06:35 98.5 F 72 15 138/83 93 Intake and Output 12/08/18 12/09/18 12/09/18 23:59 07:59 15:59 Intake Total 882 / 882 120 / 120 1462.5 / 1462.5 Output Total 800 / 800 500 / 500 0 / 0 Balance 82 / 82 -380 / -380 1462.5 / 1462.5 Intake: IV Fluids 882 / 882 1462.5 / 1462.5 KCl 20mEq IN D5%-0.45 NACL 20 1200 / 1200 meq In 1,000 ml @ 50 mls/hr IVC .Q20H [facility] Rx#:[id number] Ofirmev 1,000 mg/100 ml 1,000 100 / 100 mg In 100 ml @ 400 mls/hr IVPB Q6H PRN Rx#:[id number] Venofer 250 MG In 0.9 % Sodium 262.5 / 262.5 Chloride 250 ML @ 130 mls/hr IVPB DAILY [facility] Rx#:[id number] KCl 40 MEQ Xylocaine 2 ML In 522 / 522 Dextrose 5% 500 ML @ 130.5 mls/ hr IVPB ONCE ONE Rx#:[id number] Sodium Phosphate 30 MMOL In 0.9 260 / 260 % Sodium Chloride 250 ML @ 42 mls/hr IVPB ONCE ONE Rx#: [id number] Oral 0 / 0 120 / 120 Output: Urine 800 / 800 200 / 200 0 / 0 Stool 300 / 300 Gastric Tube Lavage Amount 0 / 0 0 / 0 Left Nare 0 / 0 0 / 0 Gastric Drainage 0 / 0 0 / 0 Left Nare 0 / 0 0 / 0 Other: Meal NPO Stool Size Moderate Stool Consistency loose liquid Stool Characteristics Mucoid Stool Color Brown Weight 78.6 kg Blood Glucose* 132 116 Patient Weight 12/09/18 23:59 Weight 78.6 kg - General physical appearance well developed, well nourished, no distress, no pain - Eyes PERRL, normal ocular movement - ENT normal mucosa, normocephalic - Neck Neck exam: trachea midline - Respiratory normal expansion, clear to auscultation - Cardiovascular Cardiovascular exam: Present: RRR - Abdomen Abdomen: Present: bowel sounds present, soft, tender (mild and appropriate to palpation). Absent: guarding, rebound - Incision Incision: Present: clean and dry, intact - Integumentary no rash, no growths - Neurologic CN 2-12 grossly intact - Musculoskeletal normal posture - Psychiatric oriented to time, oriented to person, oriented to place, speech is normal, memory intact - Labs 12/09/18 01:25 12/09/18 01:25 Diabetes panel 12/09/18 Range/Units 01:25 Sodium 134 L (136-145) mEq/L Potassium 3.8 (3.5-5.1) mEq/L Chloride 105 (98-107) mEq/L Carbon Dioxide 23 (23-29) mEq/L BUN 4 L (6-20) mg/dL Creatinine 0.44 L (0.60-1.20) mg/dL Glucose 284 H (70-105) mg/dL Calcium 8.1 L (8.6-10.3) mg/dL Calcium panel 12/09/18 12/09/18 Range/Units 01:25 01:25 Calcium 8.1 L (8.6-10.3) mg/dL Phosphorus 2.8 (2.7-4.5) mg/dL Pituitary panel 12/09/18 Range/Units 01:25 Sodium 134 L (136-145) mEq/L Potassium 3.8 (3.5-5.1) mEq/L Chloride 105 (98-107) mEq/L Carbon Dioxide 23 (23-29) mEq/L BUN 4 L (6-20) mg/dL Creatinine 0.44 L (0.60-1.20) mg/dL Glucose 284 H (70-105) mg/dL Calcium 8.1 L (8.6-10.3) mg/dL Adrenal panel 12/09/18 Range/Units 01:25 Sodium 134 L (136-145) mEq/L Potassium 3.8 (3.5-5.1) mEq/L Chloride 105 (98-107) mEq/L Carbon Dioxide 23 (23-29) mEq/L BUN 4 L (6-20) mg/dL Creatinine 0.44 L (0.60-1.20) mg/dL Glucose 284 H (70-105) mg/dL Calcium 8.1 L (8.6-10.3) mg/dL Consult Discharge Plan - Plan Referrals: Sangeetha Morales CNP [Primary Care Provider] - Tri Trammell MD [Partnered Physician] - 12/20/18 9:05 am
[2018-12-09] MEDS: D5% in 0.45% NACL 1,000 ML IVC SCH (13:19)
[2018-12-09] MEDS: Acetaminophen IV 1,000 MG/100 ML INFUS..BTL IVPB PRN (22:15)
[2018-12-10] MEDS: *HR* Heparin 5,000 UNIT/ML VIAL SQ SCH ×2 (05:40→17:45)
[2018-12-10 06:19] LABS: Basophils # 0.1 K/mcL (0.0-0.2); Basophils % 0.9 %; Eosinophils # 0.4 K/mcL (0.0-0.6); Eosinophils % 6.7 %; Hematocrit 29.7 % (35.3-44.9); Hemoglobin 9.4 g/dL (11.5-15.4); Lymphocytes # 1.1 K/mcL (0.6-4.6); Lymphocytes % 20.8 %; Mean Corpuscular HGB Conc 31.6 g/dL (31.6-35.5); Mean Corpuscular Hemoglobin 28.6 pg (28.0-33.3); Mean Corpuscular Volume 90.3 fL (83.0-100.0); Mean Platelet Volume 10.3 fL (9.4-12.4); Monocytes # 0.5 K/mcL (0.0-1.3); Neutrophils # 3.2 K/mcL (1.6-8.9); Nucleated Red Blood Cells 0.9 /100 WBC (0); Platelet Count 249 K/mcL (140-400); Red Blood Count 3.29 M/mcL (3.82-4.97); Red Cell Distribution Width 13.2 % (11.5-14.5); Segmented Neutrophils % 59.6 %
[2018-12-10 06:39] LABS: BUN/Creatinine Ratio 12 (6-26); Blood Urea Nitrogen 6 mg/dL (6-20); Calcium 8.8 mg/dL (8.6-10.3); Carbon Dioxide 24 mEq/L (23-29); Chloride 105 mEq/L (98-107); Glucose 111 mg/dL (70-105); Magnesium 1.6 mg/dL (1.6-2.6); Osmolality,Calculated 282 (280-300); Phosphorous 3.1 mg/dL (2.7-4.5); Potassium 3.4 mEq/L (3.5-5.1); Sodium 137 mEq/L (136-145); eGFR For Non-African Americans > 60 (> 60)
[2018-12-10] MEDS: Pantoprazole 40 MG VIAL IVP SCH (07:42)
[2018-12-10] MEDS: Loratadine 10 MG TABLET PO SCH (07:42)
[2018-12-10] MEDS: Iron Sucrose Complex 250 MG in 0.9 % Sodium Chloride 250 ML IVPB SCH (07:43)
[2018-12-10] MEDS: *HR* OxyCODONE Oral Soln 5 MG/5 ML UD.LIQ PO PRN ×2 (11:27→18:42)
[2018-12-10] MEDS: D5% in 0.45% NACL 1,000 ML IVC SCH (13:15)
--- NOTE | 2018-12-10 13:38 | General Surgery Progress Note ---
Date of Encounter: 12/10/18 Time of Encounter: 13:36 - Assessment and Plan (1) DVT prophylaxis Current Visit: Yes Status: Acute epcds heparin sq (2) GERD (gastroesophageal reflux disease) Current Visit: Yes Status: Chronic change to omeprazole and continue carafate Qualifiers: Esophagitis presence: esophagitis presence not specified Qualified Code(s): K21.9 - Gastro-esophageal reflux disease without esophagitis (3) Colon cancer Current Visit: Yes Status: Suspected pathology pending regular diet for dinner po pain medication prn abdominal binder prn discomfort ambulate patient doing well ok to shower patient has liquid stool and been incontinent, started psyllium saline lock iv ok to remove power glide as is causing patient pain Qualifiers: Colon location: overlapping sites Qualified Code(s): C18.8 - Malignant neoplasm of overlapping sites of colon (4) HTN, goal below 130/80 Current Visit: Yes Status: Chronic continue home medication normotensive, monitor (5) Decreased hemoglobin Current Visit: Yes Status: Acute blood loss in OR, dilutional patient may have gastritis, ngt looks blood tinged, monitor venofer started (6) Hyperlipidemia Current Visit: Yes Status: Chronic continue home medication Qualifiers: Hyperlipidemia type: unspecified Qualified Code(s): E78.5 - Hyperlipidemia, unspecified (7) Hypokalemia Current Visit: Yes Status: Acute replaced po Subjective Patient reports: feels better, pain is less, tolerating liquids well, flatus, bowel movement, afebrile Objective Vital Signs - Last 8 Hours Temp Pulse Resp BP Pulse Ox 12/10/18 10:02 98.5 F 77 15 129/82 94 12/10/18 06:17 98.0 F 77 15 131/87 93 Intake and Output 12/09/18 12/10/18 12/10/18 23:59 07:59 15:59 Intake Total 646 / 646 720 / 720 552.5 / 552.5 Output Total 1000 / 1000 400 / 400 400 / 400 Balance -354 / -354 320 / 320 152.5 / 152.5 Intake: IV Fluids 166 / 166 460 / 460 312.5 / 312.5 D5% And 0.45% Nacl 1000 Ml Bag 66 / 66 460 / 460 50 / 50 1,000 ML @ 30 mls/hr IVC .Q24H [facility] Rx#:[id number] Ofirmev 1,000 mg/100 ml 1,000 100 / 100 mg In 100 ml @ 400 mls/hr IVPB Q6H PRN Rx#:[id number] Venofer 250 MG In 0.9 % Sodium 262.5 / 262.5 Chloride 250 ML @ 130 mls/hr IVPB DAILY [facility]AY Rx#:[id number] Oral 480 / 480 260 / 260 240 / 240 Output: Urine 600 / 600 200 / 200 400 / 400 Stool 100 / 100 Urine/Stool Mix 400 / 400 100 / 100 Other: Meal Clears Dinner Lunch Percent of Meal Consumed 50% 45% Stool Size Moderate Moderate Small Stool Consistency liquid liquid liquid Stool Color Brown Brown Brown # Voids 1 # Bowel Movements 0 0 1 Weight 78.9 kg Patient Weight 12/10/18 23:59 Weight 78.9 kg - General physical appearance well developed, well nourished, no distress, no pain - Eyes PERRL, normal ocular movement - ENT normal mucosa, normocephalic - Neck Neck exam: trachea midline - Respiratory normal expansion, clear to auscultation - Cardiovascular Cardiovascular exam: Present: RRR - Abdomen Abdomen: Present: bowel sounds present, soft, tender (minimal appropriate post op tenderness). Absent: distended, guarding, rebound - Incision Incision: Present: clean and dry, intact (upper midline packed) - Integumentary no rash - Neurologic CN 2-12 grossly intact - Musculoskeletal normal gait, normal posture - Psychiatric oriented to time, oriented to person, oriented to place, speech is normal, memor y intact - Labs 12/10/18 05:38 12/10/18 05:38 Short CBC 12/10/18 Range/Units 05:38 WBC 5.4 (4.3-11.1) K/mcL Hgb 9.4 L (11.5-15.4) g/dL Hct 29.7 L (35.3-44.9) % Plt Count 249 (140-400) K/mcL Neutrophils # 3.2 (1.6-8.9) K/mcL BMP 12/10/18 12/09/18 Range/Units 05:38 17:32 Sodium 137 (136-145) mEq/L Potassium 3.4 L 3.4 L (3.5-5.1) mEq/L Chloride 105 (98-107) mEq/L Carbon Dioxide 24 (23-29) mEq/L BUN 6 (6-20) mg/dL Creatinine 0.50 L (0.60-1.20) mg/dL Glucose 111 H (70-105) mg/dL Calcium 8.8 (8.6-10.3) mg/dL Vital Signs Temp Pulse Resp BP Pulse Ox 12/10/18 10:02 98.5 F 77 15 129/82 94 12/10/18 06:17 98.0 F 77 15 131/87 93 12/10/18 03:02 98.3 F 84 16 122/73 94 12/09/18 23:24 98.5 F 92 16 113/72 94 12/09/18 19:08 98.6 F 98 16 132/86 94 12/09/18 14:04 98.6 F 88 15 138/89 94 Intake and Output 12/09/18 12/10/18 12/10/18 23:59 07:59 15:59 Intake Total 646 / 646 720 / 720 552.5 / 552.5 Output Total 1000 / 1000 400 / 400 400 / 400 Balance -354 / -354 320 / 320 152.5 / 152.5 Intake: IV Fluids 166 / 166 460 / 460 312.5 / 312.5 D5% And 0.45% Nacl 1000 Ml Bag 66 / 66 460 / 460 50 / 50 1,000 ML @ 30 mls/hr IVC .Q24H [facility]AY Rx#:[id number] Ofirmev 1,000 mg/100 ml 1,000 100 / 100 mg In 100 ml @ 400 mls/hr IVPB Q6H PRN Rx#:[id number] Venofer 250 MG In 0.9 % Sodium 262.5 / 262.5 Chloride 250 ML @ 130 mls/hr IVPB DAILY [facility]AY Rx#:[id number] Oral 480 / 480 260 / 260 240 / 240 Output: Urine 600 / 600 200 / 200 400 / 400 Stool 100 / 100 Urine/Stool Mix 400 / 400 100 / 100 Other: Meal Clears Dinner Lunch Percent of Meal Consumed 50% 45% Stool Size Moderate Moderate Small Stool Consistency liquid liquid liquid Stool Color Brown Brown Brown # Voids 1 # Bowel Movements 0 0 1 Weight 78.9 kg Patient Weight 12/10/18 23:59 Weight 78.9 kg Consult Discharge Plan - Plan Referrals: Sangeetha Morales CNP [Primary Care Provider] - Tri Trammell MD [Partnered Physician] - 12/20/18 9:05 am
--- NOTE | 2018-12-10 13:42 | Discharge Summary ---
<Tri Trammell Bharati - Last Filed: 12/10/18 13:40> Orders not resulted at time of discharge: Pending orders 12/04/18 17:35 Surgical Pathology [PTH] Routine 12/11/18 04:00 BMP [Basic Metabolic Panel] AM 0400 Complete Blood Count [HEME] AM 0400 Magnesium AM 0400 Phosphorous AM 0400 Date of Encounter: 12/12/18 - Discharge Diagnosis (1) DVT prophylaxis Priority: Secondary Status: Acute (2) GERD (gastroesophageal reflux disease) Priority: Secondary Status: Chronic Qualifiers: Esophagitis presence: esophagitis presence not specified Qualified Code(s): K21.9 - Gastro-esophageal reflux disease without esophagitis (3) Colon cancer Priority: Primary Status: Suspected Qualifiers: Colon location: overlapping sites Qualified Code(s): C18.8 - Malignant neoplasm of overlapping sites of colon (4) HTN, goal below 130/80 Priority: Secondary Status: Chronic (5) Decreased hemoglobin Priority: Secondary Status: Acute (6) Hyperlipidemia Priority: Secondary Status: Chronic Qualifiers: Hyperlipidemia type: unspecified Qualified Code(s): E78.5 - Hyperlipidemia, unspecified (7) Hypokalemia Priority: Secondary Status: Acute General Surgery Exam Initial Vital Signs Temp Pulse Resp BP Pulse Ox 99.1 F 94 18 129/87 93 12/04/18 11:12 12/04/18 11:12 12/04/18 11:12 12/04/18 11:12 12/04/18 11:12 - General physical appearance well developed, well nourished, no distress - Eyes PERRL - ENT normal mucosa, normocephalic - Neck trachea midline - Respiratory normal expansion, clear to auscultation - Cardiovascular Cardiovascular exam: Present: RRR - Abdomen Abdomen general surgery: Present: bowel sounds present, soft, non tender. Absent: distended - Incision Incision: Present: clean and dry, intact, open (upper midline packed) - Integumentary Integumentary general surgery: Present: warm and dry - Neurologic Present: CN 2-12 grossly intact - Musculoskeletal Present: normal posture - Psychiatric Psychiatric general surgery: Present: A&Ox3, speech is normal - Hospital Course Hospital course: Ms. Edgar is a 58 year old female who was admitted after surgery. She underwent a subtotal colectomy with ileorectal anastomosis on 12/04/18. Patient had an uncomplicated postoperative course. She was started on diet once had bowel function. 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 She was up ambulating well, having appropriate bowel function. - Time Spent with Patient Total time spent providing and/or coordinating discharge services: - Discharge Medications Prescriptions: OxyCODONE/APAP 5/325 [Percocet 5/325 MG] 1 each PO Q6HR PRN 6 Days #22 tablet PRN Reason: Pain Home Medications: Aspirin [Lo-Dose Aspirin EC] 81 mg PO DAILY 01/03/18 [History] Famotidine [Heartburn Prevention] 20 mg PO DAILY 01/03/18 [History] Losartan [Cozaar] 25 mg PO DAILY 01/03/18 [History] Cetirizine HCl [Zyrtec] 10 mg PO DAILY 11/09/18 [History] Atorvastatin Calcium 80 mg PO DAILY 12/04/18 [History] Docusate [Colace] 200 mg PO DAILY 12/04/18 [History] OxyCODONE/APAP 5/325 [Percocet 5/325 MG] 1 each PO Q6HR PRN 6 Days #22 tablet 12/10/18 [Rx] Allergies/Adverse Reactions: Allergy/AdvReac Type Severity Reaction Status Date / Time No Known Allergies Allergy Verified 11/28/18 14:41 Date of admission: 12/04/18 18:32 Primary care physician: Sangeetha Morales CNP Consults: 12/07/18 09:03 Consult to Invasive Line Access Team [CONS] Routine Reason for Consult: Picc Line Insertion Line Type: PICC PICC line indications: Parental nutrition 12/07/18 12:47 Consult to Invasive Line Access Team [CONS] Routine Reason for Consult: limited vascular access with need for multiple IV meds Line Type: EPIV Discharging clinician: Tri Trammell Anticipated date of discharge: 12/12/18 Labs on day of discharge: Labs from last 24 hours 12/10/18 12/10/18 12/10/18 05:38 05:38 05:38 WBC 5.4 RBC 3.29 L Hgb 9.4 L Hct 29.7 L MCV 90.3 MCH 28.6 MCHC 31.6 RDW 13.2 Plt Count 249 MPV 10.3 Immature Gran % 2.0 Seg Neutrophils % 59.6 Lymphocytes % 20.8 Monocytes % 10.0 Eosinophils % 6.7 Basophils % 0.9 Neutrophils # 3.2 Lymphocytes # 1.1 Monocytes # 0.5 Eosinophils # 0.4 Basophils # 0.1 Nucleated RBCs/100 WBC 0.9 H Sodium 137 Potassium 3.4 L Chloride 105 Carbon Dioxide 24 BUN 6 Creatinine 0.50 L Est GFR ( Amer) > 60 Est GFR (Non-Af Amer) > 60 BUN/Creatinine Ratio 12 Glucose 111 H Calculated Osmolality 282 Calcium 8.8 Phosphorus 3.1 Magnesium 1.6 12/09/18 17:32 WBC RBC Hgb Hct MCV MCH MCHC RDW Plt Count MPV Immature Gran % Seg Neutrophils % Lymphocytes % Monocytes % Eosinophils % Basophils % Neutrophils # Lymphocytes # Monocytes # Eosinophils # Basophils # Nucleated RBCs/100 WBC Sodium Potassium 3.4 L Chloride Carbon Dioxide BUN Creatinine Est GFR ( Amer) Est GFR (Non-Af Amer) BUN/Creatinine Ratio Glucose Calculated Osmolality Calcium Phosphorus Magnesium - Impressions ITS Impressions KUB X-Ray 12/07/18 08:05 IMPRESSION: Gastric tube projects is intragastric. Advancement of 4 cm is suggested. Nonspecific bowel gas pattern. D/ / Lencho Brown MD / Lencho Brown MD Interpreting Provider: Lencho Brown MD - Patient Status Disposition: Home Health Service Condition: Good Functional capacity at discharge: independent ambulation Overall status at discharge: patient is progressing back to baseline - Discharge Instructions Instructions: Colectomy (DC) Follow Up With: Sangeetha Morales CNP [Primary Care Provider] - Tri Trammell MD [Partnered Physician] - 12/20/18 9:05 am Additional Instructions: General Surgical Discharge Instructions 1. No pushing, pulling, or lifting greater than 15 lbs for 6 weeks (depending upon procedure). 2. You may shower beginning today, but no tub baths, soaking, or swimming for 2 weeks. 3. You may resume driving when you are off narcotics and are safe to react in a car. 4. Take ibuprofen every 8 hours for discomfort. If this does not relieve discomfort, you may take the as needed Percocet. Take narcotics as directed. Do not take more narcotics then directed and do not share your narcotics with any other person. Do not drink alcohol while on narcotics. 5. Take stool softeners (Colace) or a water based laxative (Miralax) while taking narcotics. You may hold for loose stools. 6. Report any fevers greater than 100.5F, increase abdominal discomfort, drainage that looks like pus, increased redness or pain at the surgical site, or any vomiting. 7. Report any pain in the calves, shortness of breath, or rapid heartbeat. 8. Follow-up in the office as directed. 9. If you were prescribed antibiotics, do not stop them without talking to your provider. Daily Wound Care: remove dressing and packing. Wash with antibacterial soap. Repack the upper portion of incision with 1/4 inch iodoform gauze, for wicking purposes. Cover with a dry dressing. Tape to secure. The remainder of the incision can be left open to air or covered with a dry dressing according to patient preference. - Diet and Activity Activity: increase activity as tolerated Diet: regular diet - Attending Attestation I have personally performed a face to face evaluation on this patient. I have reviewed and agree with the care plan. History and Exam by me shows: <Neelima Amaral - Last Filed: 12/12/18 09:17> Orders not resulted at time of discharge: Pending orders 12/04/18 17:35 Surgical Pathology [PTH] Routine Date of Encounter: 12/12/18 Time of Encounter: 09:13 - Discharge Diagnosis (1) Colon cancer Priority: Primary Status: Suspected Qualifiers: Colon location: overlapping sites Qualified Code(s): C18.8 - Malignant neoplasm of overlapping sites of colon (2) HTN, goal below 130/80 Priority: Secondary Status: Chronic (3) Decreased hemoglobin Priority: Secondary Status: Resolved (4) Anemia Priority: Secondary Status: Resolved Qualifiers: Anemia type: iron deficiency Iron deficiency anemia type: unspecified iron deficiency Qualified Code(s): D50.9 - Iron deficiency anemia, unspecified (5) DVT prophylaxis Priority: Secondary Status: Resolved (6) GERD (gastroesophageal reflux disease) Priority: Secondary Status: Chronic Qualifiers: Esophagitis presence: esophagitis presence not specified Qualified Code(s): K21.9 - Gastro-esophageal reflux disease without esophagitis (7) Electrolyte imbalance Priority: Secondary Status: Resolved (8) Protein-calorie malnutrition, mild Priority: Secondary Status: Resolved General Surgery Exam Initial Vital Signs Temp Pulse Resp BP Pulse Ox 99.1 F 94 18 129/87 93 12/04/18 11:12 12/04/18 11:12 12/04/18 11:12 12/04/18 11:12 12/04/18 11:12 - General physical appearance well developed, well nourished, no distress - ENT normal mucosa, normocephalic - Neck trachea midline - Respiratory normal expansion, clear to auscultation - Cardiovascular Cardiovascular exam: Present: RRR - Abdomen Abdomen general surgery: Present: bowel sounds present, soft, tender (Expected postoperative) - Incision Incision: Present: clean and dry, intact, open - Integumentary Integumentary general surgery: Present: warm and dry - Neurologic Present: CN 2-12 grossly intact, normal coordination, normal sensation - Musculoskeletal Present: normal gait, normal posture - Psychiatric Psychiatric general surgery: Present: appropriate, oriented to person, oriented to place, oriented to time, speech is normal, memory intact - Time Spent with Patient Total time spent providing and/or coordinating discharge services: Date of admission: 12/04/18 18:32 Primary care physician: Sangeetha Morales CNP Consults: 12/07/18 09:03 Consult to Invasive Line Access Team [CONS] Routine Reason for Consult: Picc Line Insertion Line Type: PICC PICC line indications: Parental nutrition 12/07/18 12:47 Consult to Invasive Line Access Team [CONS] Routine Reason for Consult: limited vascular access with need for multiple IV meds Line Type: EPIV 12/11/18 11:44 Consult to Benefits Specialist [CONS] Routine Reason for SW Consult: Home health care for daily packing at discharge - Impressions ITS Impressions KUB X-Ray 12/07/18 08:05 IMPRESSION: Gastric tube projects is intragastric. Advancement of 4 cm is suggested. Nonspecific bowel gas pattern. D/ / Lencho Brown MD / Lencho Brown MD Interpreting Provider: Lencho Brown MD - Patient Status Functional capacity at discharge: independent ambulation Overall status at discharge: patient is progressing back to baseline - Diet and Activity Activity: increase activity as tolerated Diet: regular diet
[2018-12-10] MEDS: Psyllium 1 PACKET POWD.PACK PO SCH ×2 (14:00→21:24)
[2018-12-11] MEDS: *HR* OxyCODONE Oral Soln 5 MG/5 ML UD.LIQ PO PRN ×4 (02:46→16:04)
[2018-12-11 05:34] LABS: Basophils # 0.1 K/mcL (0.0-0.2); Basophils % 1.1 %; Eosinophils # 0.5 K/mcL (0.0-0.6); Eosinophils % 6.8 %; Hematocrit 29.9 % (35.3-44.9); Hemoglobin 9.4 g/dL (11.5-15.4); Immature Granulocytes % 3.9 % (0-4); Lymphocytes # 1.1 K/mcL (0.6-4.6); Lymphocytes % 16.9 %; Mean Corpuscular HGB Conc 31.4 g/dL (31.6-35.5); Mean Corpuscular Hemoglobin 28.8 pg (28.0-33.3); Mean Corpuscular Volume 91.7 fL (83.0-100.0); Mean Platelet Volume 9.9 fL (9.4-12.4); Monocytes # 0.7 K/mcL (0.0-1.3); Monocytes % 10.2 %; Neutrophils # 4.1 K/mcL (1.6-8.9); Nucleated Red Blood Cells 0.5 /100 WBC (0); Platelet Count 247 K/mcL (140-400); Red Blood Count 3.26 M/mcL (3.82-4.97); Red Cell Distribution Width 13.9 % (11.5-14.5); Segmented Neutrophils % 61.1 %
[2018-12-11] MEDS: *HR* Heparin 5,000 UNIT/ML VIAL SQ SCH ×2 (06:01→17:36)
[2018-12-11 06:03] LABS: Magnesium 1.7 mg/dL (1.6-2.6); Phosphorous 3.1 mg/dL (2.7-4.5)
[2018-12-11 06:04] LABS: BUN/Creatinine Ratio 15 (6-26); Blood Urea Nitrogen 9 mg/dL (6-20); Calcium 8.8 mg/dL (8.6-10.3); Carbon Dioxide 23 mEq/L (23-29); Chloride 106 mEq/L (98-107); Glucose 120 mg/dL (70-105); Osmolality,Calculated 282 (280-300); Potassium 3.7 mEq/L (3.5-5.1); Sodium 136 mEq/L (136-145); eGFR For Non-African Americans > 60 (> 60)
[2018-12-11] MEDS: Iron Sucrose Complex 250 MG in 0.9 % Sodium Chloride 250 ML IVPB SCH (10:19)
[2018-12-11] MEDS: Loratadine 10 MG TABLET PO SCH (10:20)
[2018-12-11] MEDS: Psyllium 1 PACKET POWD.PACK PO SCH ×3 (10:20→22:31)
--- NOTE | 2018-12-11 11:08 | General Surgery Progress Note ---
<Sonia Lang - Last Filed: 12/11/18 11:05> Date of Encounter: 12/11/18 Time of Encounter: 10:45 - Assessment and Plan (1) Colon cancer Current Visit: Yes Status: Suspected POD #7 Subtotal colectomy, takedown splenic flexure, omentectomy, side to end ileorectal anastomosis with Dr. Trammell Pathology pending Regular diet Supportive care and pain control Daily wound care- packing (Social service consult for discharge planning and [place] packing) Ambulate hallways TID with assistance IS every 1 hour while awake No further incontinence with addition of psyllium Repeat am labs- CBC May shower daily Abdominal binder for patient comfort Qualifiers: Colon location: overlapping sites Qualified Code(s): C18.8 - Malignant neoplasm of overlapping sites of colon (2) Anemia Current Visit: Yes Status: Acute Hgb- 8.7>9.4>9.4 Stable Iron infusions daily with last infusion scheduled for 12/12/18 Qualifiers: Anemia type: iron deficiency Iron deficiency anemia type: unspecified iron deficiency Qualified Code(s): D50.9 - Iron deficiency anemia, unspecified (3) GERD (gastroesophageal reflux disease) Current Visit: Yes Status: Chronic PPI therapy daily Qualifiers: Esophagitis presence: esophagitis presence not specified Qualified Code(s): K21.9 - Gastro-esophageal reflux disease without esophagitis (4) DVT prophylaxis Current Visit: Yes Status: Acute Heparin 5,000 units SQ twice daily for DVT prophylaxis Ambulate hallways TID with assistance Subjective Patient reports: no new complaints, feels better, still having pain, pain is less (controlled with prn medications), tolerating a regular diet, voiding w/o difficulty, flatus, bowel movement (patient reports that stool has more consistency and denies any further incontinence), afebrile Objective Vital Signs - Last 8 Hours Temp Pulse Resp BP Pulse Ox 12/11/18 10:22 97.7 F 90 16 100/67 95 12/11/18 07:16 97.9 F 82 14 105/70 94 12/11/18 03:38 98.4 F 88 16 110/71 95 Intake and Output 12/10/18 12/11/18 12/11/18 23:59 07:59 15:59 Intake Total 0 / 0 100 / 100 Output Total 0 / 0 200 / 200 0 / 0 Balance 0 / 0 -100 / -100 0 / 0 Intake: Oral 0 / 0 100 / 100 Output: Urine 0 / 0 200 / 200 0 / 0 Other: Meal Dinner Percent of Meal Consumed 50% Stool Size Small Stool Consistency loose Stool Color Brown # Bowel Movements 0 0 1 Weight 79.1 kg Patient Weight 12/11/18 23:59 Weight 79.1 kg - General physical appearance well developed, well nourished, no distress - Eyes normal ocular movement - ENT normal mucosa, atraumatic, normocephalic - Neck Neck exam: trachea midline - Respiratory normal respiratory effort, clear to auscultation - Cardiovascular Cardiovascular exam: Present: RRR - Abdomen Abdomen: Present: bowel sounds present, soft, tender (expected post-operative tenderness) - Incision Incision: Present: serosanguinous (midline incision with betzy intact; small open area at the top with packing noted (scant amount of serousang. drainage noted)) - Neurologic CN 2-12 grossly intact - Psychiatric oriented to time, oriented to person, oriented to place, speech is normal, memory intact - Labs 12/11/18 05:12 12/11/18 05:12 Diabetes panel 12/11/18 Range/Units 05:12 Sodium 136 (136-145) mEq/L Potassium 3.7 (3.5-5.1) mEq/L Chloride 106 (98-107) mEq/L Carbon Dioxide 23 (23-29) mEq/L BUN 9 (6-20) mg/dL Creatinine 0.60 (0.60-1.20) mg/dL Glucose 120 H (70-105) mg/dL Calcium 8.8 (8.6-10.3) mg/dL Calcium panel 12/11/18 12/11/18 Range/Units 05:12 05:12 Calcium 8.8 (8.6-10.3) mg/dL Phosphorus 3.1 (2.7-4.5) mg/dL Pituitary panel 12/11/18 Range/Units 05:12 Sodium 136 (136-145) mEq/L Potassium 3.7 (3.5-5.1) mEq/L Chloride 106 (98-107) mEq/L Carbon Dioxide 23 (23-29) mEq/L BUN 9 (6-20) mg/dL Creatinine 0.60 (0.60-1.20) mg/dL Glucose 120 H (70-105) mg/dL Calcium 8.8 (8.6-10.3) mg/dL Adrenal panel 12/11/18 Range/Units 05:12 Sodium 136 (136-145) mEq/L Potassium 3.7 (3.5-5.1) mEq/L Chloride 106 (98-107) mEq/L Carbon Dioxide 23 (23-29) mEq/L BUN 9 (6-20) mg/dL Creatinine 0.60 (0.60-1.20) mg/dL Glucose 120 H (70-105) mg/dL Calcium 8.8 (8.6-10.3) mg/dL Consult Discharge Plan - Plan Instructions: Colectomy (DC) Additional Instructions: General Surgical Discharge Instructions 1. No pushing, pulling, or lifting greater than 15 lbs for 6 weeks (depending upon procedure). 2. You may shower beginning today, but no tub baths, soaking, or swimming for 2 weeks. 3. You may resume driving when you are off narcotics and are safe to react in a car. 4. Take ibuprofen every 8 hours for discomfort. If this does not relieve discomfort, you may take the as needed Percocet. Take narcotics as directed. Do not take more narcotics then directed and do not share your narcotics with any other person. Do not drink alcohol while on narcotics. 5. Take stool softeners (Colace) or a water based laxative (Miralax) while taking narcotics. You may hold for loose stools. 6. Report any fevers greater than 100.5F, increase abdominal discomfort, drainage that looks like pus, increased redness or pain at the surgical site, or any vomiting. 7. Report any pain in the calves, shortness of breath, or rapid heartbeat. 8. Follow-up in the office as directed. 9. If you were prescribed antibiotics, do not stop them without talking to your provider. Daily Wound Care: remove dressing and packing. Wash with antibacterial soap. Repack the upper portion of incision with 1/4 inch iodoform gauze, for wicking purposes. Cover with a dry dressing. Tape to secure. The remainder of the incision can be left open to air or covered with a dry dressing according to patient preference. Referrals: Sangeetha Morales CNP [Primary Care Provider] - Tri Trammell MD [Partnered Physician] - 12/20/18 9:05 am Prescriptions: OxyCODONE/APAP 5/325 [Percocet 5/325 MG] 1 each PO Q6HR PRN 6 Days #22 tablet PRN Reason: Pain - Attending Attestation For this encounter, I have reviewed the WATER REGULATOR AND VALVE REPAIRER or PA documentation, treatment plan, and medical decision making; and I have had face to face time with this patient. <Tri Trammell - Last Filed: 12/12/18 09:38> Date of Encounter: 12/11/18 - Assessment and Plan (1) DVT prophylaxis Current Visit: Yes Status: Resolved (2) GERD (gastroesophageal reflux disease) Current Visit: Yes Status: Chronic Qualifiers: Esophagitis presence: esophagitis presence not specified Qualified Code(s): K21.9 - Gastro-esophageal reflux disease without esophagitis (3) Colon cancer Current Visit: Yes Status: Suspected pathology pending regular diet sliv prn pain control ambulating ok shower gi/dvt prophylaxis daily dressing changes dc planning Qualifiers: Colon location: overlapping sites Qualified Code(s): C18.8 - Malignant neoplasm of overlapping sites of colon (4) HTN, goal below 130/80 Current Visit: Yes Status: Chronic (5) Decreased hemoglobin Current Visit: Yes Status: Resolved (6) Hyperlipidemia Current Visit: Yes Status: Chronic Qualifiers: Hyperlipidemia type: unspecified Qualified Code(s): E78.5 - Hyperlipidemia, unspecified (7) Hypokalemia Current Visit: Yes Status: Acute Subjective Patient reports: feels better, still having pain, pain is less, tolerating a regular diet, voiding w/o difficulty, flatus, bowel movement, afebrile Objective Vital Signs - Last 8 Hours Temp Pulse Resp BP Pulse Ox 12/12/18 08:30 96 116/79 12/12/18 06:11 98.3 F 93 15 89/60 93 12/12/18 03:49 98.6 F 88 16 108/69 93 Intake and Output 12/11/18 12/12/18 12/12/18 23:59 07:59 15:59 Intake Total 240 / 240 100 / 100 Output Total 0 / 0 100 / 100 Balance 240 / 240 0 / 0 Intake: Oral 240 / 240 100 / 100 Output: Urine 0 / 0 100 / 100 Other: Meal Dinner Percent of Meal Consumed 25% # Voids 1 Weight 79 kg Patient Weight 12/12/18 23:59 Weight 79 kg - General physical appearance well developed, well nourished, no distress - Eyes normal ocular movement - ENT normal mucosa, normocephalic - Neck Neck exam: trachea midline - Respiratory normal respiratory effort, clear to auscultation - Cardiovascular Cardiovascular exam: Present: RRR - Abdomen Abdomen: Present: bowel sounds present, soft, tender. Absent: guarding, rebound - Incision Incision: Present: serosanguinous - Integumentary no growths - Neurologic CN 2-12 grossly intact - Musculoskeletal normal posture - Psychiatric oriented to time, oriented to person, oriented to place, memory intact - Labs 12/11/18 05:12 12/11/18 05:12 - Attending Attestation I have personally performed a face to face evaluation on this patient. I have reviewed and agree with the care plan. History and Exam by me shows:
[2018-12-11] MEDS ORDERED: Acetaminophen 325 MG TABLET PO PRN (13:43)
[2018-12-12] MEDS: *HR* OxyCODONE Oral Soln 5 MG/5 ML UD.LIQ PO PRN ×2 (02:53→10:46)
[2018-12-12] MEDS: *HR* Heparin 5,000 UNIT/ML VIAL SQ SCH (06:16)
[2018-12-12] MEDS: Psyllium 1 PACKET POWD.PACK PO SCH (08:34)
[2018-12-12] MEDS: Loratadine 10 MG TABLET PO SCH (08:34)
[2018-12-12] MEDS: Iron Sucrose Complex 250 MG in 0.9 % Sodium Chloride 250 ML IVPB SCH (08:34)
--- NOTE | 2018-12-12 09:17 | Physician Discharge Referral ---
Home Health/Hosp Referral Info Transfer to: Home Health Attending Provider: Dr. Tri Trammell Provider in Charge Post Discharge: Other (same) - Diagnosis (1) Colon cancer Priority: Primary Status: Suspected (2) HTN, goal below 130/80 Priority: Secondary Status: Chronic (3) Decreased hemoglobin Priority: Secondary Status: Resolved (4) Anemia Priority: Secondary Status: Resolved (5) DVT prophylaxis Priority: Secondary Status: Resolved (6) GERD (gastroesophageal reflux disease) Priority: Secondary Status: Chronic (7) Electrolyte imbalance Priority: Secondary Status: Resolved (8) Protein-calorie malnutrition, mild Priority: Secondary Status: Resolved - Respiratory Orders Smoking Cessation: Smoking cessation has been advised. For more information, call the [employer] Quit Line at 2-415-PQXR-NOW. - Dressing/Wound Care Site: Midline abdomen Type of Dressing/Treatments w/Frequency: Daily Wound Care: remove dressing and packing. Wash with antibacterial soap. R epack the upper portion of incision with 1/4 inch iodoform gauze, for wicking purposes. Cover with a dry dressing. Tape to secure. The remainder of the incision can be left open to air or covered with a dry dressing according to patient preference. Patient has been provided with supplies from the hospital. No rx needed - Diet/Nutrition Diet/Nutrition Orders: Regular - Activity Activity Orders: [place] - Services Needed Following services are medically necessary services: Nursing Other Treatments: General Surgical Discharge Instructions 1. No pushing, pulling, or lifting greater than 15 lbs for 6 weeks (depending upon procedure). 2. You may shower beginning today, but no tub baths, soaking, or swimming for 2 weeks. 3. You may resume driving when you are off narcotics and are safe to react in a car. 4. Take ibuprofen every 8 hours for discomfort. If this does not relieve discomfort, you may take the as needed Percocet. Take narcotics as directed. Do not take more narcotics then directed and do not share your narcotics with any other person. Do not drink alcohol while on narcotics. 5. Take stool softeners (Colace) or a water based laxative (Miralax) while taking narcotics. You may hold for loose stools. 6. Report any fevers greater than 100.5F, increase abdominal discomfort, drainage that looks like pus, increased redness or pain at the surgical site, or any vomiting. 7. Report any pain in the calves, shortness of breath, or rapid heartbeat. 8. Follow-up in the office as directed. 9. If you were prescribed antibiotics, do not stop them without talking to your provider. - Transfer Medications Prescriptions: OxyCODONE/APAP 5/325 [Percocet 5/325 MG] 1 each PO Q6HR PRN 6 Days #22 tablet PRN Reason: Pain Home Medications: Aspirin [Lo-Dose Aspirin EC] 81 mg PO DAILY 01/03/18 [History] Famotidine [Heartburn Prevention] 20 mg PO DAILY 01/03/18 [History] Losartan [Cozaar] 25 mg PO DAILY 01/03/18 [History] Cetirizine HCl [Zyrtec] 10 mg PO DAILY 11/09/18 [History] Atorvastatin Calcium 80 mg PO DAILY 12/04/18 [History] Docusate [Colace] 200 mg PO DAILY 12/04/18 [History] OxyCODONE/APAP 5/325 [Percocet 5/325 MG] 1 each PO Q6HR PRN 6 Days #22 tablet 12/10/18 [Rx] Allergies/Adverse Reactions: Allergy/AdvReac Type Severity Reaction Status Date / Time No Known Allergies Allergy Verified 11/28/18 14:41 Certification: Further, I certify that my clinical findings support that this patient is homebound (i.e. absences from home require considerable and taxing effort and are for medical reasons or [employer] services or infrequently or short duration when for other reasons) because: Homebound Reason: Patient requires assistance of a person or device to safely leave home, Post-surgery restriction and or conditions limit ability to leave home Attestation: My signature below is to certify that this patient is under my care and that I, or nurse practitioner, or a physician's funeral director's assistant working with me, has a [id number] encounter with this patient.
[2018-12-12 10:20] VITALS: BP 118/80
== END 2018-12-12 13:50 | disposition home health service (06) | DRG 330 ==
LOC: SAMDAY 10:45 → 3ANU 18:32
PROVIDERS: ADMIT Surgery; ATTEND Surgery